=== PATIENT | female | born 1965 | race Caucasian/White ===

== ENCOUNTER 2016-06-24 17:35 | Emergency (ER) | payer MEDICAID ==
[~2016-06-24] VITALS: Ht 162.6 cm; Wt 90.7 kg
[~2016-06-24 17:35] MED LIST: ALBUTEROL-200 PUFFS/ IH; ALBUTEROL2.5 MG/NEB IN; ALBUTEROL2.5 MG/NEB INH; AMLODIPINE10 M2 PO; BENZONATATE100 MG PO; CIPRO 500MG TA500 MG PO; CLONIDINE HYDR0.1 MG PO; DUONEB 3 MG/3 ML3 ML IH; FLEXERIL10 MG PO; HYDROCODONE-APA1 TA2 PO; HYDROCODONE1 TABLET PO; HYGROTON GENERI25 MG PO; KEFLEX 500MG.500 MG PO; LISINOPRIL 20MG20 MG PO; LISINOPRIL10 MG PO; LORTAB 5/500 501 TAB PO; MEDROL 4MG. DOSE4 MG PO; MUCINEX1200 MG PO; NORVASC 10MG. T10 MG PO; PERCOCET 500 MG1 TAB PO; PHENERGAN 25MG.25 M1 PO; PRAVACHOL40 MG PO; PREDNISONE 20MG20 MG PO; PROVENTIL0.09 MG/A1 IH; PROVENTIL0.09 MG/Ac IH; REGLAN 5MG TABLE5 MG PO; SULFAMETHOXAZOL1 TA6 PO; TESSALON PERLE100 M1 PO; TESSALON PERLE100 MG PO; TORADOL10 MG PO; TYLENOL W/CODEI1 TA2 PO; ZANTAC 150150 MG PO; ZESTRIL10 MG NG; ZITHROMAX TRI-500 M1 PO; ZITHROMAX Z-PA250 M1 PO; ZITHROMAX Z-PA250 M2 PO; ZOFRAN ODT4 MG PO; ZOFRAN ODT8 MG PO; ZYRTEC10 M2 PO; ZYRTEC10 MG PO
[2016-06-24] MEDS ORDERED: AUGMENTIN 875-1 EACH PO (18:22)
--- NOTE | 2016-06-24 18:23 | Emergency Room Report ---
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 N Clinical Suspician of Infection? N Mental Status: 1 - Regular (Normal Baseline) Sepsis Risk:Possible Sepsis Risk Have you (or family members/close friends) recently traveled outside the [place]? N If Yes, where/when: Have you had exposure to infectious disease within the past month? N TB? Other? Specify: Source patient, RN notes reviewed, family, RN/MD Exam Limitations no limitations Comment This a 50-year-old feel patient presented emergency room with sore throat, runny nose and nonproductive cough, diagnosed in the emergency room yesterday with an upper respiratory infection. She was not prescribed any antibiotics. She was advised to try [id number] medications. Patient is here today complaining with no improvement in her medical condition. ALLERGIES Coded Allergies: adhesive (S-BLISTERING WELTS 08/28/15) Home Medications Active Scripts ALBUTEROL (Proventil Hfa Inhaler) 1-2 PUFF IH Q4-6H PRN #1 CAN Ref 1 Prov: 06/23/16 Benzonatate (Tessalon Perle) 100 MG PO TID #15 SGL Prov: 06/23/16 CETIRIZINE HCL (Zyrtec) 10 MG PO DAILY #30 TAB Ref 6 Prov: 08/28/15 ALBUTEROL (Albuterol 0.083% Neb) 2.5 MG INH QID #120 VIAL Ref 2 Prov: 08/28/15 Albuterol (Albuterol-Hfa Inhaler) 1 PUFF IH QID #1 INH Ref 6 Prov: 08/28/15 Lisinopril (Zestril) 10 MG NG DAILY #30 TAB Ref 11 Prov: 03/28/16 Reported Medications Ranitidine Hcl (Zantac) 150 MG PO DAILY History Medical History General CAD? No Angina: No VA: No Hypertension? Yes Hyperlipidemia? Yes CHF? No DVT? No PE? No COPD? No Asthma? Yes Anemia? No GERD? No Gastric ulcers? No GI Bleed? No Hernia? Yes Thyroid Problems? No Hypothyroidism? No CVA? No Seizures? No Diabetes? No Insulin Dependent: No Insulin Pump: No Home FSBS? No Renal Insuffiency? No End Stage Renal Disease? No UTI? No Stones? No BPH? No GB Disease: No Nephritic Syndrome? No Asplenia? No Hepatitis? No Sickle Cell Disease? No Arthritis? No Migraines? No Cataracts? No Glaucoma? No MRSA? No HIV? No TB? No Anxiety? No Depression? No Cancer? No More? 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 Psychiatric/Neurological weakness Physical Exam Vital Signs Vital Signs Date Time Temp Pulse Resp B/P Pulse O2 O2 Flow FiO2 Ox Delivery Rate 06/24 1954 99.4 97 20 184/104 98 06/24 1953 97 20 184/104 98 06/24 1910 20 06/24 1904 109 20 190/95 98 06/24 1805 99.4 101 20 189/99 98 General Appearance normal appearance, WD/WN, no apparent distress Ear, Nose, Throat hearing grossly normal, nasal congestion, pharyngeal erythema Neck normal inspection, non-tender, supple, full range of motion Respiratory Status Yes: trachea midline, chest symmetrical, non tender chest. No: respiratory distress. Lung Sounds bilateral: normal breath sounds, lungs clear. 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 No Comment Patient is medically stable, minimally symptomatic. Will no other start patient on antibiotics, and have her follow-up with PCP if not better in 2-3 days in the office. Results/Orders Current Medication Orders Sig/Renato Start time Last Medication Dose Route Stop Time Status Admin Clonidine HCl 0 .STK-MED ONE 06/24 1946 DC .ROUTE Clonidine HCl 0.2 MG ONCE ONE 06/24 1944 DC 06/24 PO 06/24 Clonidine HCl 0 .STK-MED ONE 06/24 1907 DC .ROUTE Diphenhydramine HCl 0 .STK-MED ONE 06/24 1907 DC .ROUTE Ketorolac 0 .STK-MED ONE 06/24 190 DC Tromethamine .ROUTE Amoxicillin/ 0 .STK-MED ONE 06/24 1906 DC Clavulanate Potassium PO Metoclopramide HCl 0 .STK-MED ONE 06/24 190 DC .ROUTE Amoxicillin/ 500 MG ONCE ONE 06/24 1830 DC 06/24 Clavulanate Potassium PO 06/24 1831 1910 Clonidine HCl 0.1 MG ONCE ONE 06/24 1830 DC 01/02 PO / 1831 1910 Diphenhydramine HCl 50 MG ONCE ONE 06/24 1830 DC / IM 06/24 1831 1909 Ketorolac 60 MG ONCE ONE 06/24 1830 DC / Tromethamine IM 06/24 1831 1910 Metoclopramide HCl 10 MG ONCE ONE 06/24 1830 DC / IM 06/24 1831 1909 Departure Departure Time of Disposition 1820 Disposition DC Home or Self Care(routine) Clinical Impression Primary Impression: Acute bronchitis Qualifiers: Bronchitis organism: unspecified organism Qualified Code: J20.9 - Acute bronchitis, unspecified Secondary Impressions: Headache Qualifiers: Headache type: tension-type Headache chronicity pattern: unspecified pattern Intractability: not intractable Qualified Code: G44.209 - Tension-type headache, unspecified, not intractable Hypertension Myalgia Condition STABLE Referrals Jose Warner MD (Family): Today after leaving ER Patient Instructions DI for Acute Bronchitis, DI for Sinus Headache, Treatments for High Blood Pressure: More Than Just Taking a Pill Additional Instructions Please take the medications prescribed as instructed, follow-up Dr. Warner if not better in the morning. Please alternate Motrin with Tylenol for body aches/fever control. Discharge Counseling Counseled pt/family regarding diagnosis, test results, medications/RX, home care, follow up needs Comment Please take the medications prescribed as instructed, follow-up Dr. Warner if not better in the morning. Please alternate Motrin with Tylenol for body aches/fever control. Prescriptions Current Visit Scripts Amoxicillin/Potassium Clav (Augmentin 875-125 Tablet) 1 EACH PO BID #20 TAB LISINOPRIL (Lisinopril) 20 MG PO DAILY #30 TAB Ref 2 ED Critical Care Critical Care No at 1028
[2016-06-24] MEDS ORDERED: LISINOPRIL 20MG20 MG PO (19:49)
[2016-06-24 19:55] VITALS: BP 184/104
== END 2016-06-24 19:56 | disposition home or self-care (01) ==
LOC: ER 17:35
DX: J20.9 Acute bronchitis, unspecified (principal); G44.209 Tension-type headache, unspecified, not intractable; I10 Essential (primary) hypertension; M79.1 Myalgia

== ENCOUNTER 2016-11-02 10:36 | Emergency (ER) | payer MEDICAID ==
[~2016-11-02] VITALS: Ht 162.6 cm; Wt 90.7 kg
[~2016-11-02 10:36] MED LIST changes: +AUGMENTIN 875-1 EACH PO; +ZITHROMAX Z PA250 MG PO
--- OUTSIDE RECORDS SUMMARY | 2016-11-02 10:45 | External Medical Summary Rpt ---
Author Author , Organization [employer] Address Unknown Phone Unavailable Care Team Providers Care Watch Inspector Final Movement Name Role Phone MANJINDER DUNBAR Unavailable Unavailable [facility] Unavailable Unavailable INC, [facility] Unavailable Unavailable [facility], [facility], [facility] Unavailable Unavailable [facility], [facility] RENUSCH, RENUSCH Unavailable Unavailable Jose Warner MD, Unavailable Unavailable Jose Warner MD Purpose Continuity of Care Document - 08-15-2012 through 2016 Problems Code Diagnosis DOS Provider Status [id number] MILD 09-24-2016 [facility] P UNCOMPLICAT ED [id number] OTHER 08-15-2016 [facility] Z0000 ENCOUNTER 08-15-2016 [facility] EXAM INC W/O ABNORMAL FIND I10 ESSENTIAL 06-23-2016 [facility] HYPERTENSIO INC N J069 ACUTE UPPER 06-23-2016 [facility] INFECTION UNSPECIFIED [id number] ATELECTASIS 06-23-2016 [facility] R05 COUGH 06-23-2016 [facility] J209 ACUTE 05-15-2016 [facility] UNSPECIFIED INC [id number] Chest pain [facility] I10 ESSENTIAL (PRIMARY) HYPERTENSIO N I16.9 HYPERTENSIV E CRISIS, UNSPECIFIED [id number] J06.9 ACUTE UPPER RESPIRATORY INFECTION, UNSPECIFIED J18.9 PNEUMONIA, UNSPECIFIED ORGANISM J20.9 ACUTE BRONCHITIS, UNSPECIFIED J40 BRONCHITIS, NOT SPECIFIED ACUTE OR CHRONIC M79.1 MYALGIA M79.2 NEURALGIA AND NEURITIS, UNSPECIFIED R01.1 CARDIAC MURMUR, UNSPECIFIED R07.89 OTHER CHEST PAIN R09.02 HYPOXEMIA R10.9 UNSPECIFIED ABDOMINAL PAIN R50.9 FEVER, UNSPECIFIED R51 HEADACHE 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, LEFT EYE, INIT Z91.19 PATIENT'S NONCOMPLIAN CE W OTH MEDICAL TREATMENT AND REGIMEN Allergies, Adverse Reactions, Alerts Type Allergy to substance Drug Allergy Adverse Reaction to Substance Substance Reaction Severity Adhesive S-BLISTERING WELTS Unknown NO KNOWN DRUG Unknown Unknown ALLERGIES Clinical Alert Notifications Alert Asthma: absence of controller with h/o SA beta agonist Medications Na ND Rx Da Fi Fi Am Da Di Ph RX Ph St me C No te ll ll ou ys ag ar # ys at rm s nt no ma ic us Or Da si cy ia de te s n re d VE 00 02 03 18 17 00 WA Ac NT 17 -0 -0 .0 00 L- ti OL 30 7- 3- 00 07 MA ve IN 68 20 20 46 RT 22 17 17 18 HF 0 69 PH A AR 90 MA CY MC G #5 IN VARGAS LE R LI 54 02 03 30 30 00 WA Ac SI 45 -0 -0 .0 00 L- ti NO 80 7- 3- 00 07 MA ve IL 99 20 20 46 RT IL 61 17 17 21 0 92 PH 20 AR MA MG CY TA #5 BL 91 ET BE 68 01 02 15 5 00 WA Ac NZ 38 -0 -0 .0 00 L- ti ON 20 9- 3- 00 07 MA ve AT 24 20 20 46 RT AT 70 17 17 18 E 1 68 PH 10 AR 0 MA MG CY CA #5 PS 91 UL E VE 00 01 02 18 17 00 WA Ac NT 17 -0 -0 .0 00 L- ti OL 30 9- 3- 00 07 MA ve IN 68 20 20 46 RT 22 17 17 18 HF 0 69 PH A AR 90 MA CY MC G #5 IN 91 VARGAS LE R AM 00 01 02 20 10 00 WA Ac OX 78 -0 -0 .0 00 L- ti -C 11 9- 3- 00 07 MA ve LA 85 20 20 46 RT V 22 17 17 21 87 0 82 PH 5- AR 12 MA 5 CY MG #5 TA 91 BL ET LI 54 01 02 30 30 00 WA Ac SI 45 -0 -0 .0 00 L- ti NO 80 9- 3- 00 07 MA ve IL 99 20 20 46 RT IL 61 17 17 21 0 92 PH 20 AR MA MG CY TA #5 BL 91 ET Sa 63 01 0 No li 80 -2 ne 70 9- Lo 10 20 ng Fl 07 14 er us 5 h Ac 10 ti ML ve Sy ri ng e MA 00 01 0 No PA 90 -2 P 41 9- Lo 32 98 20 ng 5 26 14 er MG 1 Ac TA ti BL ve ET Sa 63 01 0 No li 80 -2 ne 70 9- Lo 10 20 ng Fl 07 14 er us 5 h Ac 10 ti ML ve Sy ri ng e SO 00 10 0 No DI 40 -2 UM 97 0- Lo 98 20 ng CH 30 13 er LO 9 RI Ac DE ti ve 0. 9% SO OBDULIA TI ON Sa 63 10 0 No li 80 -2 ne 70 0- Lo 10 20 ng Fl 07 13 er us 5 h Ac 10 ti ML ve Sy ri ng e ON 00 10 0 No DA 64 -2 NS 16 0- Lo ET 08 20 ng RO 02 13 er N 5 HC Ac L ti 4 ve MG /2 ML AL Mo 00 10 0 No rp 40 -2 hi 91 0- Lo ne 25 20 ng 83 13 er 4M 0 G/ Ac Ml ti ve Sy ri ng e Ib 62 07 0 No up 58 -1 ro 40 5- Lo fe 74 20 ng n 70 13 er 60 1 0M Ac G ti Ta ve bl et Sa 63 07 0 No li 80 -1 ne 70 5- Lo 10 20 ng Fl 07 13 er us 5 h Ac 10 ti ML ve Sy ri ng e SO 00 07 0 No DI 40 -1 UM 97 5- Lo 98 20 ng CH 30 13 er LO 9 RI Ac DE ti ve 0. 9% SO OBDULIA TI ON MA 00 07 0 No PA 90 -1 P 41 5- Lo 32 98 20 ng 5 26 13 er MG 1 Ac TA ti BL ve ET Ib 62 07 0 No up 58 -1 ro 40 5- Lo fe 74 20 ng n 70 13 er 60 1 0M Ac G ti Ta ve bl et Sa 63 07 0 No li 80 -1 ne 70 5- Lo 10 20 ng Fl 07 13 er us 5 h Ac 10 ti ML ve Sy ri ng e KE 00 07 0 No TO 40 -1 RO 93 5- Lo LA 79 20 ng C 50 13 er 30 1 Ac MG ti /M ve L AL CE 00 07 0 No FT 40 -1 RI 97 5- Lo AX 33 20 ng ON 30 13 er E 4 1 Ac GM ti ve AL So 00 07 0 No d 07 -1 Ch 47 5- Lo lo 10 20 ng ri 11 13 er de 3 Ac 0. ti 9% ve 50 ML Ad v IP 00 02 0 No RA 48 -2 T- 70 3- Lo AL 20 20 ng BU 10 13 er T 1 0. Ac 5- ti 3( ve 2. 5) MG /3 ML AL 00 02 0 No BU 48 -2 TE 79 3- Lo RO 50 20 ng L 10 13 er RANGEL 1 L Ac 2. ti 5 ve MG /[address] Ae 08 02 0 No ro 37 -2 ch 30 3- Lo am 76 20 ng be 50 13 er r/ 0 Op Ac ti ti vargas ve le r IL 00 02 0 No ED 05 -2 NI 40 3- Lo SO 01 20 ng NE 82 13 er 0 20 Ac ti MG ve TA BL ET Be 00 02 0 No nz 60 -2 on 32 3- Lo at 42 20 ng at 62 13 er e 1 10 Ac 0M ti G ve Ca ps ul e Le 51 02 0 No vo 07 -2 fl 90 3- Lo ox 03 20 ng ac 52 13 er in 0 Ac 50 ti 0M ve G Ta bl et Vital Signs 07-21-2013 12:11 Name Value Interpretat Reference Comment ion Range Body 98 [degF] Temperature BP 93 mm[Hg] Diastolic BP Systolic 178 mm[Hg] Heart 75 /min Rate/Pulse O2% 97 % Respiratory 20 /min Rate 07-21-2013 08:06 Name Value Interpretat Reference Comment ion Range BP 101 mm[Hg] Diastolic BP Systolic 156 mm[Hg] Heart 76 /min Rate/Pulse O2% 98 % Respiratory 20 /min Rate 04-11-2013 19:15 Name Value Interpretat Reference Comment ion Range BP 100 mm[Hg] Diastolic BP Systolic 153 mm[Hg] Heart 82 /min Rate/Pulse O2% 96 % Respiratory 20 /min Rate 04-11-2013 17:04 Name Value Interpretat Reference Comment ion Range BP 94 mm[Hg] Diastolic BP Systolic 157 mm[Hg] Heart 85 /min Rate/Pulse O2% 96 % Respiratory 20 /min Rate 01-04-2013 21:13 Name Value Interpretat Reference Comment ion Range Body 99.8 [degF] Temperature BP 66 mm[Hg] Diastolic BP Systolic 119 mm[Hg] Heart 115 /min Rate/Pulse O2% 95 % Respiratory 18 /min Rate 01-04-2013 19:44 Name Value Interpretat Reference Comment ion Range Body 102.1 Temperature [degF] 01-04-2013 18:38 Name Value Interpretat Reference Comment ion Range BP 90 mm[Hg] Diastolic BP Systolic 167 mm[Hg] Heart 113 /min Rate/Pulse O2% 98 % Respiratory 20 /min Rate 08-15-2012 22:41 Name Value Interpretat Reference Comment ion Range BP 80 mm[Hg] Diastolic BP Systolic 154 mm[Hg] Heart 100 /min Rate/Pulse O2% 95 % Respiratory 20 /min Rate 08-15-2012 21:04 Name Value Interpretat Reference Comment ion Range BP 94 mm[Hg] Diastolic BP Systolic 163 mm[Hg] Heart 101 /min Rate/Pulse Respiratory 24 /min Rate 08-15-2012 20:43 Name Value Interpretat Reference Comment ion Range O2% 93 % Results Labs Lab Lab Date Result Refere Interp Status Commen Order Detail nces retati t Range on BASIC METABOLIC PANEL (07-21-2013 07:50) Glucose 87 74-106 complet 014 mg/dL ed Bld-mCn 07:50 c BUN 13 7-18 complet Bld-mCn 014 mg/dL ed c 07:50 Creat 0.7 0.6-1.0 complet SerPl-m 014 mg/dL ed Cnc 07:50 GFR/BSA 89 59- complet .pred 014 ML/MIN ed SerPl 07:50 Schwart z-vRate Sodium 141 136-145 complet SerPl-s 014 mmoL/L ed Cnc 07:50 Potassi 3.7 3.5-5.1 complet um 014 mmoL/L ed SerPl-s 07:50 Cnc Chlorid 106 98-107 complet e 014 mmoL/L ed SerPl-s 07:50 Cnc CO2 28 21.0-32 complet SerPl-s 014 mmoL/L .0 ed Cnc 07:50 Calcium 8.2 8.5-10. complet 014 mg/dL 1 ed SerPl-m 07:50 Cnc CBC with AUTO DIFF (07-21-2013 07:50) WBC # 07-21-2 8.9 4.8-10. complet Bld 014 K/MM3 8 ed Auto 07:50 RBC # 07-21-2 5.07 4.2-5.4 complet Bld 014 M/mm3 ed Auto 07:50 Hgb 2 15.0 12.2-16 complet Bld-mCn 014 g/dL .2 ed c 07:50 Hct Fr 45.1 % 37.0-47 complet Bld 014 .0 ed 07:50 MCV RBC 88.9 fl 82.2-97 complet 014 .8 ed 07:50 MCH RBC 29.6 pg 27-31.2 complet Qn 014 ed Auto 07:50 MEAN 33.3 31.8-35 complet CORPUSC 014 g/dl .4 ed ULAR 07:50 HGB CONC RDW RBC 14.5 % 11.5-17 complet Auto 014 .5 ed 07:50 Platele 334 142-424 complet t Bld 014 K/mm3 ed Ql 07:50 Manual MEAN 7.8 fl 7.4-10. complet PLATELE 014 4 ed T 07:50 VOLUME Granulo 62.3 % 37.0-80 complet cytes 014 .0 ed Fr Bld 07:50 Auto LYMPH % 07-21-2 27.7 % 10-50.0 complet 014 ed 07:50 Monocyt 07-21-2 6.1 % 1.7-9.3 complet es Fr 014 ed Bld 07:50 Auto Eosinop 07-21-2 3.1 % 0.1-12. complet hil Fr 014 0 ed Bld 07:50 Auto Basophi 07-21-2 0.8 % 0.1-2.0 complet ls Fr 014 ed Bld 07:50 Auto Granulo 07-21-2 5.6 1.8-7.8 complet cytes # 014 K/mm3 ed Bld 07:50 Auto Lymphoc 07-21-2 2.5 0.7-4.5 complet ytes Fr 014 K/mm3 ed Bld 07:50 Auto Monocyt 07-21-2 0.5 0.1-1.0 complet es # 014 K/mm3 ed Bld 07:50 Auto Eosinop 07-21-2 0.3 0.0-0.4 complet hil # 014 K/mm3 ed Bld 07:50 Auto Basophi 07-21-2 0.1 0-0.2 complet ls # 014 K/MM3 ed Bld 07:50 Auto URINALYSIS/COMPLETE (04-11-2013 18:00) URINE 04-11-2 YELLOW YELLOW complet COLOR 013 ed 18:00 URINE 04-11-2 SL CLEAR complet APPEARA 013 CLOUDY ed NCE 18:00 URINE 04-11-2 NEGATIV NEG complet GLUCOSE 013 E ed - 18:00 DIPSTIC K URINE 04-11-2 NEGATIV NEG complet BILIRUB 013 E ed IN - 18:00 DIPSTIC K URINE 04-11-2 NEGATIV NEG complet KETONE 013 E mg/dL ed 18:00 URINE 04-11-2 1.010 1.005-1 complet SPECIFI 013 UNK .030 ed C 18:00 GRAVITY URINE 04-11-2 NEGATIV NEG complet BLOOD 013 E ed 18:00 URINE 04-11-2 7.0 UNK 5.0-8.5 complet PH 013 ed 18:00 URINE 04-11-2 NEGATIV NEG complet PROTEIN 013 E mg/dL ed - 18:00 DIPSTIC K URINE 04-11-2 0.2 NEG complet UROBILI 013 E.U./dL ed NOGEN - 18:00 DIPSTIC K URINE 04-11-2 NEGATIV NEG complet NITRATE 013 E ed - 18:00 DIPSTIC K URINE 04-11-2 NEGATIV NEG complet LEUK 013 E ed ESTERAS 18:00 E URINE 04-11-2 OCC 0 complet RBC 013 rbc/hpf ed 18:00 URINE 04-11-2 OCC O complet WBC 013 wbc/hpf ed 18:00 URINE 04-11-2 10-20 0-5 complet SQUAMOU 013 #/hpf ed S CELLS 18:00 URINE 04-11-2 TRACE O complet BACTERI 013 ed A 18:00 COMPREHENSIVE METABOLIC PANEL (04-11-2013 16:40) Glucose 04-11- 92 74-106 complet 013 mg/dL ed Bld-mCn 16:40 c BUN 04-11-2 12 7-18 complet Bld-mCn 013 mg/dL ed c 16:40 Creat 04-11-2 0.6 0.6-1.0 complet SerPl-m 013 mg/dL ed Cnc 16:40 ESTIMAT 10-20-2 162 50-200 complet ED 013 ML/MIN ed CREATIN 16:40 INE CLEARAN CE GFR 04-11-2 106 59- complet (ESTIMA 013 ML/MIN ed HUEY) 16:40 Sodium 20-2 141 136-145 complet SerPl-s 013 mmoL/L ed Cnc 16:40 Potassi 1020-2 3.8 3.5-5.1 complet um 013 mmoL/L ed SerPl-s 16:40 Cnc Chlorid 20- 105 98-107 complet e 013 mmoL/L ed SerPl-s 16:40 Cnc CO2 04-11-2 28 21.0-32 complet SerPl-s 013 mmoL/L .0 ed Cnc 16:40 Calcium 04-11-2 8.7 8.5-10. complet 013 mg/dL 1 ed SerPl-m 16:40 Cnc Prot 20- 7.1 6.4-8.2 complet SerPl-m 013 gm/dL ed Cnc 16:40 Albumin 04-11-2 3.6 3.4-5.0 complet 013 gm/dL ed SerPl-m 16:40 Cnc Globuli 04-11-2 3.5 1.3-3.2 complet n 013 gm/dL ed Ser-mCn 16:40 c Albumin 04-11-2 1.0 UNK 1.1-1.8 complet /Glob 013 ed SerPl-m 16:40 Rto Bilirub 04-11-2 0.2 0.2-1.0 complet 013 mg/dL ed SerPl-m 16:40 Cnc AST 20-2 18 U/L 15-37 complet SerPl-c 013 ed Cnc 16:40 ALT 20-2 35 U/L 30-65 complet SerPl-c 013 ed Cnc 16:40 ALP 20-2 130 U/L 50-136 complet SerPl-c 013 ed Cnc 16:40 Amylase SerPl-cCnc (04-11-2013 16:40) Amylase 1020-2 53 U/L 25-115 complet 013 ed SerPl-c 16:40 Cnc LIPASE (04-11-2013 16:40) LIPASE 20-2 114 U/L 73-393 complet 013 ed 16:40 CBC with AUTO DIFF (04-11-2013 16:40) WBC # 10-20-2 9.9 4.8-10. complet Bld 013 K/MM3 8 ed Auto 16:40 RBC # 10-20-2 5.02 4.2-5.4 complet Bld 013 M/mm3 ed Auto 16:40 Hgb 10-20-2 15.2 12.2-16 complet Bld-mCn 013 g/dL .2 ed c 16:40 Hct Fr 10-20-2 46.3 % 37.0-47 complet Bld 013 .0 ed 16:40 MCV RBC 10-20-2 92.4 fl 82.2-97 complet 013 .8 ed 16:40 MCH RBC 10-20-2 30.4 pg 27-31.2 complet Qn 013 ed Auto 16:40 MEAN 10-20-2 32.9 31.8-35 complet CORPUSC 013 g/dl .4 ed ULAR 16:40 HGB CONC RDW RBC 10-20-2 14.6 % 11.5-17 complet Auto 013 .5 ed 16:40 Platele 10-20-2 308 142-424 complet t Bld 013 K/mm3 ed Ql 16:40 Manual MEAN 10-20-2 8.0 fl 7.4-10. complet PLATELE 013 4 ed T 16:40 VOLUME Granulo 10-20-2 65.8 % 37.0-80 complet cytes 013 .0 ed Fr Bld 16:40 Auto LYMPH % 10-20-2 22.6 % 10-50.0 complet 013 ed 16:40 Monocyt 10-20-2 6.1 % 1.7-9.3 complet es Fr 013 ed Bld 16:40 Auto Eosinop 10-20-2 4.7 % 0.1-12. complet hil Fr 013 0 ed Bld 16:40 Auto Basophi 10-20-2 0.8 % 0.1-2.0 complet ls Fr 013 ed Bld 16:40 Auto Granulo 10-20-2 6.5 1.8-7.8 complet cytes # 013 K/mm3 ed Bld 16:40 Auto Lymphoc 10-20-2 2.2 0.7-4.5 complet ytes Fr 013 K/mm3 ed Bld 16:40 Auto Monocyt 10-20-2 0.6 0.1-1.0 complet es # 013 K/mm3 ed Bld 16:40 Auto Eosinop 10-20-2 0.5 0.0-0.4 complet hil # 013 K/mm3 ed Bld 16:40 Auto Basophi 10-20-2 0.1 0-0.2 complet ls # 013 K/MM3 ed Bld 16:40 Auto BASIC METABOLIC PANEL (01-04-2013 19:48) Glucose 07-15-2 110 74-106 complet 013 mg/dL ed Bld-mCn 19:48 c BUN 07-15-2 10 7-18 complet Bld-mCn 013 mg/dL ed c 19:48 Creat 07-15-2 0.8 0.6-1.0 complet SerPl-m 013 mg/dL ed Cnc 19:48 GFR -15-2 76 59- complet (ESTIMA 013 ML/MIN ed HUEY) 19:48 Sodium -15-2 137 136-145 complet SerPl-s 013 mmoL/L ed Cnc 19:48 Potassi -15-2 3.3 3.5-5.1 complet um 013 mmoL/L ed SerPl-s 19:48 Cnc Chlorid -15-2 102 98-107 complet e 013 mmoL/L ed SerPl-s 19:48 Cnc CO2 07-15-2 26 21.0-32 complet SerPl-s 013 mmoL/L .0 ed Cnc 19:48 Calcium 07-15-2 8.5 8.5-10. complet 013 mg/dL 1 ed SerPl-m 19:48 Cnc CBC with AUTO DIFF (01-04-2013 19:48) WBC # 07-15-2 15.2 4.8-10. complet Bld 013 K/MM3 8 ed Auto 19:48 RBC # 07-15-2 4.82 4.2-5.4 complet Bld 013 M/mm3 ed Auto 19:48 Hgb 07-15-2 14.4 12.2-16 complet Bld-mCn 013 g/dL .2 ed c 19:48 Hct Fr -15-2 43.1 % 37.0-47 complet Bld 013 .0 ed 19:48 MCV RBC 07-15-2 89.3 fl 82.2-97 complet 013 .8 ed 19:48 MCH RBC -15-2 29.9 pg 27-31.2 complet Qn 013 ed Auto 19:48 MEAN 07-15-2 33.5 31.8-35 complet CORPUSC 013 g/dl .4 ed ULAR 19:48 HGB CONC RDW RBC 07-15-2 13.2 % 11.5-17 complet Auto 013 .5 ed 19:48 Platele 07-15-2 243 142-424 complet t Bld 013 K/mm3 ed Ql 19:48 Manual MEAN 07-15-2 7.8 fl 7.4-10. complet PLATELE 013 4 ed T 19:48 VOLUME Granulo 07-15-2 90.3 % 37.0-80 complet cytes 013 .0 ed Fr Bld 19:48 Auto LYMPH % 07-15-2 3.8 % 10-50.0 complet 013 ed 19:48 Monocyt 07-15-2 3.5 % 1.7-9.3 complet es Fr 013 ed Bld 19:48 Auto Eosinop 07-15-2 1.9 % 0.1-12. complet hil Fr 013 0 ed Bld 19:48 Auto Basophi 07-15-2 0.5 % 0.1-2.0 complet ls Fr 013 ed Bld 19:48 Auto Granulo 07-15-2 13.8 1.8-7.8 complet cytes # 013 K/mm3 ed Bld 19:48 Auto Lymphoc 07-15-2 0.6 0.7-4.5 complet ytes Fr 013 K/mm3 ed Bld 19:48 Auto Monocyt 07-15-2 0.5 0.1-1.0 complet es # 013 K/mm3 ed Bld 19:48 Auto Eosinop 07-15-2 0.3 0.0-0.4 complet hil # 013 K/mm3 ed Bld 19:48 Auto Basophi 07-15-2 0.1 0-0.2 complet ls # 013 K/MM3 ed Bld 19:48 Auto URINALYSIS/COMPLETE (01-04-2013 19:00) URINE 07-15-2 YELLOW YELLOW complet COLOR 013 ed 19:00 URINE 07-15-2 CLEAR CLEAR complet APPEARA 013 ed NCE 19:00 URINE 07-15-2 NEGATIV NEG complet GLUCOSE 013 E ed - 19:00 DIPSTIC K URINE -15-2 NEGATIV NEG complet BILIRUB 013 E ed IN - 19:00 DIPSTIC K URINE NEGATIV NEG complet KETONE 013 E mg/dL ed 19:00 URINE 01-04- 1.015 1.005-1 complet SPECIFI 013 UNK .030 ed C 19:00 GRAVITY URINE 1+ NEG complet BLOOD 013 ed 19:00 URINE 01-04- 6.5 UNK 5.0-8.5 complet PH 013 ed 19:00 URINE NEGATIV NEG complet PROTEIN 013 E mg/dL ed - 19:00 DIPSTIC K URINE 01-04-2 0.2 NEG complet UROBILI 013 E.U./dL ed NOGEN - 19:00 DIPSTIC K URINE 01-04- NEGATIV NEG complet NITRATE 013 E ed - 19:00 DIPSTIC K URINE 01-04- NEGATIV NEG complet LEUK 013 E ed ESTERAS 19:00 E URINE 01-04- 3-5 0 complet RBC 013 rbc/hpf ed 19:00 URINE 01-04- OCC 0-5 complet SQUAMOU 013 #/hpf ed S CELLS 19:00 Procedures Procedure DOS Code Location Performer Comment BRNCDILAT 87481 [facility] RSPSE [facility] SPMTRY INC INC PRE&POST- BRNCDILAT ADMN LIPID 46237 [facility] PANEL [facility] INC INC BILIRUBIN 04321 [facility]ENESES DIRECT 7 [facility] [place] [address] [facility] MENESES FREE 7 [facility] [place] [address] [facility] M[facility] THYROID 7 [facility] STIMULATI INC INC NG HORMONE TSH COMPREHEN 12695 [facility] SIVE 7 [facility] METABOLIC INC INC PANEL CYANOCOBA 17556 [facility] MENESES EDINSON 7 [facility] VITAMIN INC INC B-12 BLOOD 82507 [facility] MENESES COUNT 7 [facility] COMPLETE INC INC AUTO&[place] [address] [facility] MENESES STREPTOCO 7 [facility] CCUS INC INC GROUP A CUL BACT 48786 [facility]ES XCPT 7 [facility] URINE INC INC BLOOD/STO OL AEROBIC ISOL IAADI 46295 [facility]EN[facility]ES INFLUENZA 7 [facility] B VIRUS INC INC IAADI 83302 [facility] INFFLUENZ 7 [facility] A VIRUS INC INC RADIOLOGI 37572 [facility] EXAM 7 PHYSICIAN CHEST 2 S, PLLC VIEWS FRONTAL&L ATERAL NATRIURET 15049 [facility] IC 6 [facility] PEPTIDE INC INC PRESSURIZ 85354 [facility]EN[facility] ED/NONPRE 6 [facility] SSURIZED INC INC INHALATIO N TREATMENT THERAPEUT 98005 [facility] IC 6 [facility] INJECTION INC INC IV PUSH EACH NEW DRUG CREATINE 21006 [facility] MEN[facility]ES KINASE 6 [facility] TOTAL INC INC COMPREHEN 32221 [facility] SIVE 6 [facility] METABOLIC INC INC PANEL CULTURE 91625 [facility] BACTERIAL 6 [facility] BLOOD INC INC AEROBIC W/ID ISOLATES RADIOLOGI 75107 [facility] MENESES C EXAM 6 [facility] CHEST 2 INC INC VIEWS FRONTAL&L ATERAL THER 92531 [facility] MENESES PROPH/DX 6 [facility] NJX IV INC INC PUSH SINGLE/1S T SBST/DRUG CREATINE 57342 [facility] MENESES KINASE MB 6 [facility] [place] [address] [facility] MENESES LACTATE 6 [place] [address] [facility] MENESES TROPONIN 6 [facility] QUANTITAT INC INC CHEPE BLOOD 78492 [facility] MENESES COUNT 6 [facility] COMPLETE INC INC AUTO&AUTO DIFRNTL WBC Encounters Encounter Start End Date Code Location Performer Type Date [facility] [place] [facility] [place] [facility] OUTPAT[facility]EN INC T INITIAL 12800 [facility] PREVENTIV 7 7 PHYSICIAN E S GROUP MEDICINE NEW PATIENT 40-64YRS EMERGENCY 87246 [facility] 7 7 [facility] DEPARTMEN INC T VISIT LIMITED/M [facility] - 7 7 [facility] OUTPATIEN INC T EMERGENCY 30098 [facility] 7 7 [facility]YS[facility] T VISIT HIGH/URGE NT SEVERITY HOSPITAL [facility] - 6 6 [facility] OUTPATIEN INC T EMERGENCY 93267 [facility] 6 6 [facility] DEPARTMEN INC T VISIT MODERATE SEVERITY Emergency LAKIA BERNSTEIN MD (ER) 4 08:23 4 12:18 [facility] Emergency LAKIA Louie MD (ER) 3 16:36 3 19:17 [facility] Emergency LAKIA Louie MD (ER) 3 18:18 3 21:14 [facility] Emergency LAKIA Anderson (ER) 3 20:44 3 22:41 [facility]
--- OUTSIDE RECORDS SUMMARY | 2016-11-02 10:45 | External Medical Summary Rpt ---
Author Author , Organization [employer] Address Unknown Phone Unavailable Care Team Providers Care Sales Development Consultant Name Role Phone MANJINDER DUNBAR Unavailable Unavailable [facility] Unavailable Unavailable INC, [facility] Unavailable Unavailable [facility]PITAL [facility], [facility] Unavailable Un[facility], [facility], Unavailable Unavailable PLLC, [facility] RENUSCH, RENUSCH Unavailable Unavailable Jose Warner MD, Unavailable Unavailable Jose Warner MD Purpose Continuity of Care Document - 08-15-2012 through 2016 Problems Code Diagnosis DOS Provider Status J4530 MILD 09-24-2016 [facility] P UNCOMPLICAT ED R5383 OTHER 08-15-2016 [place] FATIGUE [facility] Z0000 ENCOUNTER 08-15-2016 [place] GEN ADULT [facility] MED EXAM INC W/O ABNORMAL FIND I10 ESSENTIAL 06-23-2016 [place] PRIMARY [facility] HYPERTENSIO INC N J069 ACUTE UPPER 06-23-2016 [facility] INFECTION UNSPECIFIED J9811 ATELECTASIS 06-23-2016 [facility] R05 COUGH 06-23-2016 [facility] J209 ACUTE 05-15-2016 [place] BRONCHITIS [facility] UNSPECIFIED INC [id number] Chest pain [facility] I10 ESSENTIAL (PRIMARY) HYPERTENSIO N I16.9 HYPERTENSIV E CRISIS, UNSPECIFIED [id number] J06.9 ACUTE UPPER RESPIRATORY INFECTION, UNSPECIFIED J18.9 [...] 80 7- 3- 00 07 MA ve UT 99 20 20 46 RT IL 61 [...] 80 9- 3- 00 07 MA ve UT 99 20 20 46 RT IL 61 [...] Ac ti ti vargas ve le r UT 00 02 0 No ED 05 -2 [...] Procedure DOS Code Location Performer Comment BRNCDILAT 00859 G[facility] MENESES RSPSE 7 [facility] SPMTRY INC INC PRE&POST- BRNCDILAT ADMN LIPID 28294 [facility] MENESES PANEL 7 [facility] INC INC BILIRUBIN 95849 G[facility] MENESES DIRECT 7 [facility] [place] [address] G[facility]ON MENESES FREE 7 [facility] [address] G[facility]ON MENESES THYROID 7 [facility] STIMULATI INC INC NG HORMONE TSH COMPREHEN 55484 [facility] MENESES SIVE 7 [facility] METABOLIC INC INC PANEL CYANOCOBA 41753 GIDEON MENESES EDINSON 7 [facility] VITAMIN INC INC B-12 BLOOD 93837 G[facility]ON EMNESES COUNT 7 [facility] COMPLETE INC INC AUTO&[place] [address] GIDEON MENESES STREPTOCO 7 [facility] CCUS INC INC GROUP A CUL BACT 50458 GIDE[facility] MENESES XCPT 7 [facility] URINE INC INC BLOOD/STO OL AEROBIC ISOL IAADI 77951 GIDEON MENESES INFLUENZA 7 [facility] B VIRUS INC INC IAADI 19950 GIDE[facility] MENESES INFFLUENZ 7 [facility] A A VIRUS INC INC RADIOLOGI 40181 [facility] 7 PHYSICIAN CHEST 2 S, PLLC VIEWS FRONTAL&L ATERAL NATRIURET 17154 G[facility] MENESES IC 6 [facility] PEPTIDE INC INC PRESSURIZ 76051 GIDEON MENESES ED/NONPRE 6 [facility] SSURIZED INC INC INHALATIO N TREATMENT THERAPEUT 03726 [facility] MENESES IC 6 [facility] INJECTION INC INC IV PUSH EACH NEW DRUG CREATINE 60746 GIDEON MENESES KINASE 6 [facility] TOTAL INC INC COMPREHEN 84370 G[facility] MENESES SIVE 6 [facility] METABOLIC INC INC PANEL CULTURE 81439 GIDEON MENESES BACTERIAL 6 [facility] BLOOD INC INC AEROBIC W/ID ISOLATES RADIOLOGI 45814 GIDEON MENESES C EXAM 6 [facility] CHEST 2 INC INC VIEWS FRONTAL&L ATERAL THER 91358 GIDEON MENEESS PROPH/DX 6 [facility] NJX IV INC INC PUSH SINGLE/1S T SBST/DRUG CREATINE 56722 GIDEON MENESES KINASE MB 6 [facility] [place] [address] GIDEON MENESES LACTATE 6 [place] [address] GIDEON MENESES TROPONIN 6 [facility] QUANTITAT INC INC CHEPE BLOOD 67500 GIDEON MENESES COUNT 6 [facility] COMPLETE INC INC AUTO&AUTO DIFRNTL WBC Encounters Encounter Start End Date Code Location Performer Type Date [facility] GIDEON [place] 7 [facility] OUTPATIEN INC [facility] GIDEON Trinidad 7 [facility] OUTPATIEN INC T INITIAL 18985 [facility] FRYMAN PREVENTIV 7 7 PHYSICIAN E S GROUP MEDICINE NEW PATIENT 40-64YRS EMERGENCY 61227 GIDEON 7 7 [facility] DEPARTMEN INC T VISIT LIMITED/M INOR PROB HOSPITAL GIDEON - 7 7 [facility] OUTPATIEN INC T EMERGENCY 77568 [facility] SANTIAGOUSC 7 7 PHYSICIAN DEPARTMEN S, [employer] T VISIT HIGH/URGE NT SEVERITY HOSPITAL GIDEON - 6 6 [facility] OUTPATIEN INC T EMERGENCY 40120 GIDEON 6 6 [facility] DEPARTMEN INC T VISIT MODERATE SEVERITY Emergency LAKIA BERNSTEIN MD (ER) 4 08:23 4 12:18 [facility] Emergency LAKIA Louie MD (ER) 3 16:36 3 19:17 [facility] Emergency LAKIA Louie MD (ER) 3 18:18 3 21:14 [facility] Emergency LAKIA Anderson (ER) 3 20:44 3 22:41 [facility]
--- OUTSIDE RECORDS SUMMARY | 2016-11-02 10:47 | External Medical Summary Rpt ---
Demographics Preferred Language Monegasque Marital Status Unknown Oriental Orthodox Affiliation Unknown Race Unknown Ethnic Group Unknown Author Author , Organization [employer] Address Unknown Phone Unavailable Purpose Continuity of Care Document - through 2016 Immunization No patient found.
--- OUTSIDE RECORDS SUMMARY | 2016-11-02 10:47 | External Medical Summary Rpt ---
Author Author , Organization [employer] Address Unknown Phone Unavailable Care Team Providers Care Group Cio Name Role Phone BEINEKE, BEGAYEKE Unavailable Unavailable MANJINDER DUNBAR Unavailable Unavailable [facility] Unavailable Unavailable INC, [facility] Unavailable Unavailable HOSPITAL P, [facility] Unavailable Unavailable IMAGING ASS, [facility] WES NELSON, WES NELSON Unavailable Unavailable [facility], Unavailable Unavailable PLLC, [facility] RENJADIEL, DEANNE Unavailable Unavailable Purpose Continuity of Care Document - 05-15-2016 through 2016 Problems Code Diagnosis DOS Provider Status [id number] MILD 09-24-2016 [facility] P UNCOMPLICAT ED R5383 OTHER 08-15-2016 [place] [facility] Z0000 ENCOUNTER 08-15-2016 [place] GEN ADULT [facility] MED EXAM INC W/O ABNORMAL FIND I10 ESSENTIAL 06-23-2016 [place] PRIMARY [facility] HYPERTENSIO INC N J069 ACUTE UPPER 06-23-2016 [facility] INFECTION UNSPECIFIED J9811 ATELECTASIS 06-23-2016 [facility] R05 COUGH 06-23-2016 [facility], PLLC J209 ACUTE 05-15-2016 [place] BRONCHITIS [facility] UNSPECIFIED INC Medications Na ND Rx Da Fi Fi Am Da Di Ph RX Ph St me C No te ll ll ou ys ag ar # ys at rm s nt no ma ic us Or Da si cy ia de te s n re d LI 54 02 03 30 30 00 WA Ac SI 45 -0 -0 .0 00 L- ti NO 80 7- 3- 00 07 MA ve RI 99 20 20 46 RT IL 61 17 17 21 0 92 PH 20 AR MA MG CY TA #5 BL 91 ET VE 00 02 03 18 17 00 WA Ac NT 17 -0 -0 .0 00 L- ti OL 30 7- 3- 00 07 MA ve IN 68 20 20 46 RT 22 17 17 18 HF 0 69 PH A AR 90 MA CY MC G #5 IN 91 VARGAS LE R LI 54 01 02 30 30 00 WA Ac SI 45 -0 -0 .0 00 L- ti NO 80 07 MA ve RI 99 20 20 46 RT IL 61 17 17 21 0 92 PH 20 AR MA MG CY TA #5 BL 91 ET AM 00 01 02 20 10 00 CO Ac OX 78 -0 -0 .0 00 L- ti -C 11 07 MA ve LA 85 20 20 46 RT V 22 17 17 21 87 0 82 PH 5- AR 12 MA 5 CY MG #5 TA 91 BL ET VE 00 01 02 18 17 00 CO Ac NT 17 -0 -0 .0 00 L- ti OL 30 07 MA ve IN 68 20 20 46 RT 22 17 17 18 HF 0 69 PH A AR 90 MA CY MC G #5 IN 91 VARGAS LE R BE 68 01 02 15 5 00 CO Ac NZ 38 -0 -0 .0 00 L- ti ON 20 07 MA ve AT 24 20 20 46 RT AT 70 17 17 18 E 1 68 PH 10 AR 0 MA MG CY CA #5 PS 91 UL E Procedures Procedure DOS Code Location Performer Comment BRNCDILAT 58409 [facility] HARVEY JR RSPSE 7 [facility] PRE&POST- P BRNCDILAT ADMN LIPID 81346 GIDEON MENESES PANEL 7 [facility] INC INC BILIRUBIN 12254 GIDE[facility] MENESES DIRECT 7 [facility] INC INC CYANOCOBA 62470 GIDEON MENESES EDINSON 7 [facility] VITAMIN INC INC B-12 BLOOD 86627 G[facility] MENESES COUNT 7 [facility] COMPLETE INC INC AUTO&AUTO DIFRNTL WBC COMPREHEN 53767 [facility] MENESES SIVE 7 [facility] [place] [address] GIDEON MENESES FREE 7 [facility] [place] [address] GIDEON MENESES THYROID 7 [facility] STIMULATI [place] [address] GIDEON MENESES STREPTOCO 7 [facility] CCUS INC INC GROUP A IAADI 93453 GIDEON MENESES INFLUENZA 7 [facility] B VIRUS INC INC IAADI 79199 GIDEON MENESES INFFLUENZ 7 [facility] A A VIRUS INC INC CUL BACT 45888 GIDEON MENESES XCPT 7 [facility] URINE INC INC BLOOD/STO OL AEROBIC ISOL RADIOLOGI 81671 [place] [facility] EXAM 7 MEDICAL CHEST 2 IMAGING VIEWS ASS FRONTAL&L ATERAL RADIOLOGI 50887 GIDEON MENESES C EXAM 6 [facility] CHEST 2 INC INC VIEWS FRONTAL&L ATERAL NATRIURET 82382 G[facility] MENESES IC 6 [facility] PEPTIDE INC INC PRESSURIZ 43048 GIDEON MENESES ED/NONPRE 6 [facility] SSURIZED INC INC INHALATIO N TREATMENT THERAPEUT 65120 [facility] MENESES IC 6 [facility] INJECTION INC INC IV PUSH EACH NEW DRUG CREATINE 34936 GIDEON MENESES KINASE 6 [facility] TOTAL INC INC BLOOD 80355 GIDEON MENESES COUNT 6 [facility] COMPLETE INC INC AUTO&AUTO DIFRNTL WBC CULTURE 38575 G[facility] MENESES BACTERIAL 6 [facility] BLOOD INC INC AEROBIC W/ID ISOLATES THER 82933 GIDEON MENESES PROPH/DX 6 [facility] NJX IV INC INC PUSH SINGLE/1S T SBST/[place] [address] GIDEON MENESES TROPONIN 6 [facility] QUANTITAT INC INC CHEPE COMPREHEN 60043 G[facility] MENESES SIVE 6 [facility] METABOLIC INC INC PANEL CREATINE 53221 GIDEON MENESES KINASE MB 6 [facility] [place] [address] GIDEON MENESES LACTATE 6 [facility] INC INC Encounters Encounter Start End Date Code Location Performer Type Date [facility] GIDEON Trinidad 7 [facility] OUTPATIEN INC [facility] GIEDON Trinidad 7 [facility] OUTPATIEN INC T INITIAL 73305 [facility] MANJINDER DOUGLASIV 7 7 PHYSICIAN E S GROUP MEDICINE NEW PATIENT 40-64YRS [facility] GIDEON - 7 7 [facility] OUTPATIEN INC T EMERGENCY 45964 RAY ALICEA 7 7 [facility] T VISIT HIGH/URGE NT SEVERITY EMERGENCY 64662 GIDEON 7 7 [facility] VISIT LIMITED/M INOR PROB EMERGENCY 93984 GIDEON 6 6 [facility] T VISIT MODERATE SEVERITY HOSPITAL GIDEON - 6 6 [facility]
--- OUTSIDE RECORDS SUMMARY | 2016-11-02 10:47 | External Medical Summary Rpt ---
Author Author MAYURI Mcmullen, MAYURI Mcmullen Organization [employer] Address Unknown Phone Unavailable
--- OUTSIDE RECORDS SUMMARY | 2016-11-02 10:47 | External Medical Summary Rpt ---
Demographics Preferred Language Malian Marital Status Unknown Gnosticism Affiliation Unknown Race Unknown Ethnic Group Unknown Author Author , Organization [employer] Address Unknown Phone Unavailable Purpose Continuity of Care Document - through 2016 Immunization No patient found.
--- OUTSIDE RECORDS SUMMARY | 2016-11-02 10:47 | External Medical Summary Rpt ---
Author Author , Organization [employer] Address Unknown Phone Unavailable Care Team Providers Care Issue Clerk Name Role Phone BEINEKE, BEGAYEKE Unavailable Unavailable MANJINDER DUNBAR Unavailable Unavailable [facility] Unavailable Unavailable INC, [facility] Unavailable Unavailable HOSPITAL P, [facility] Unavailable Unavailable IM[facility]ING [facility], [facility] WES NELSON, WES NELSON Unavailable Unavailable [facility], Unavailable Unavailable PLL[facility], [facility] RENJADIEL, DEANNE Unavailable Unavailable Purpose Continuity of Care Document - 05-15-2016 through 2016 Problems Code Diagnosis DOS Provider Status J4530 MILD 09-24-2016 [facility] P UNCOMPLICAT ED R5383 OTHER 08-15-2016 [place] FATIGUE [facility] INC Z0000 ENCOUNTER 08-15-2016 [place] GEN ADULT [facility] MED EXAM INC W/O ABNORMAL FIND I10 ESSENTIAL 06-23-2016 [place] PRIMARY [facility] HYPERTENSIO INC N J069 ACUTE UPPER 06-23-2016 [facility] INFECTION UNSPECIFIED J9811 ATELECTASIS 06-23-2016 [facility] R05 COUGH 06-23-2016 [facility], [facility] J209 ACUTE 05-15-2016 [place] BRONCHITIS [facility] UNSPECIFIED INC Medications Na ND Rx [...] 80 7- 3- 00 07 MA ve [place] 99 20 20 46 RT IL 61 [...] L- ti NO 80 07 MA ve NY 99 20 20 46 RT IL 61 17 17 21 0 92 PH 20 AR MA MG CY TA #5 BL 91 ET AM 00 01 02 20 10 00 MI Ac OX 78 -0 -0 .0 00 L- ti -C 11 07 MA ve LA 85 20 20 46 RT V 22 17 17 21 87 0 82 PH 5- AR 12 MA 5 CY MG #5 TA 91 BL ET VE 00 01 02 18 17 00 MI Ac NT 17 -0 -0 .0 00 L- ti OL 30 07 MA ve IN 68 20 20 46 RT 22 17 17 18 HF 0 69 PH A AR 90 MA CY MC G #5 IN 91 VARGAS LE R BE 68 01 02 15 5 00 MI Ac NZ 38 -0 -0 .0 00 L- ti ON 20 07 MA ve AT 24 20 20 46 RT AT 70 17 17 18 E 1 68 PH 10 AR 0 MA MG CY CA #5 PS 91 UL E Procedures Procedure DOS Code Location Performer Comment BRNCDILAT 52923 GIDEON HARVEY JR RSPSE 7 [facility] PRE&POST- P BRNCDILAT ADMN LIPID 39748 GIDEON MENESES PANEL 7 [facility] INC INC BILIRUBIN 56312 GIDEON MENESES DIRECT 7 [facility] INC INC CYANOCOBA 25521 GIDEON MENESES EDINSON 7 [facility] VITAMIN INC INC B-12 BLOOD 15201 G[facility] MENESES COUNT 7 [facility] COMPLETE INC INC AUTO&AUTO DIFRNTL WBC COMPREHEN 51381 [facility] MENESES SIVE 7 [facility] [place] [address] GIDEON MENESES FREE 7 [facility] [place] [address] GIDEON MENESES THYROID 7 [facility] STIMULATI [place] [address] GIDEON MENESES STREPTOCO 7 [facility] CCUS INC INC GROUP A IAADI 91316 GIDEON MENESES INFLUENZA 7 [facility] B VIRUS INC INC IAADI 59169 G[facility]ON MENESES INFFLUENZ 7 [facility] A A VIRUS INC INC CUL BACT 68125 GIDEON MENESES XCPT 7 [facility] URINE INC INC BLOOD/STO OL AEROBIC ISOL RADIOLOGI 24977 [place] [facility] EXAM 7 MEDICAL CHEST 2 IMAGING VIEWS ASS FRONTAL&L ATERAL RADIOLOGI 58058 GIDEON MENESES C EXAM 6 [facility] CHEST 2 INC INC VIEWS FRONTAL&L ATERAL NATRIURET 64687 G[facility] MENESES IC 6 [facility] PEPTIDE INC INC PRESSURIZ 27024 GIDEON MENESES ED/NONPRE 6 [facility] SSURIZED INC INC INHALATIO N TREATMENT THERAPEUT 55385 [facility] MENESES IC 6 [facility] INJECTION INC INC IV PUSH EACH NEW DRUG CREATINE 16652 GIDEON MENESES KINASE 6 [facility] TOTAL INC INC BLOOD 60411 GIDEON MENESES COUNT 6 [facility] COMPLETE INC INC AUTO&AUTO DIFRNTL WBC CULTURE 29527 G[facility] MENESES BACTERIAL 6 [facility] BLOOD INC INC AEROBIC W/ID ISOLATES THER 55680 GIDEON MENESES PROPH/DX 6 [facility] NJX IV INC INC PUSH SINGLE/1S T SBST/[place] [address] GIDEON MENESES TROPONIN 6 [facility] H[facility] QUANTITAT INC INC CHEPE COMPREHEN 95193 GIDEON MENESES SIVE 6 [facility] METABOLIC INC INC PANEL CREATINE 74834 GIDEON MENESES KINASE MB 6 [facility] [place] [address] GIDEON MENESES LACTATE 6 [facility] INC INC Encounters Encounter Start End Date Code Location Performer Type Date [facility] GIDEON Trin[place] 7 [facility] OUTPATIEN INC [facility] GIDEON Trinidad 7 [facility] OUTPATIEN INC T INITIAL 87656 [facility] MANJINDER DOUGLASIV 7 7 PHYSICIAN E S GROUP MEDICINE NEW PATIENT 40-64YRS [facility] GIDEON - 7 7 [facility] OUTPATIEN INC T EMERGENCY 35582 RAY ALICEA 7 7 [facility] T VISIT HIGH/URGE NT SEVERITY EMERGENCY 29174 GIDEON 7 7 [facility] VISIT LIMITED/M INOR PROB EMERGENCY 81848 GIDEON 6 6 [facility] T VISIT MODERATE SEVERITY HOSPITAL GIDEON - 6 6 [facility] T
[2016-11-02] MEDS ORDERED: AUGMENTIN 875-1 EACH PO (10:59)
[2016-11-02] MEDS ORDERED: FLONASE 50 MCG16 GM (10:59)
--- NOTE | 2016-11-02 11:01 | Urgent Treatment Center Report ---
History of Present Issue Date/Time Seen by Provider 11/02/16 1053 Visit Reason Pt arrived:Walked Presenting Problem:PT STATES HEAD AND CHEST CONGESTION FOR A WEEK. STATES HARD TO HEAR FROM EAR FULLNESS FOR PAST THREE DAYS Location if Accident: Onset of symptoms date/time:/ or onset unknown for:MEDICAL HX UNKNOWN Have you (or family members/close friends) recently traveled outside the [place]? N If Yes, where/when: Have you had exposure to infectious disease within the past month? TB? Other? Specify: Source patient, RN notes reviewed Exam Limitations no limitations Comment Ear pain and pressure, sinus congestion, cough X 1 week. Seen in ER 5 days ago, given EES and Prednisone. Prednisone gave her a headache and she stopped taking it. Cough non productive. NO fever. Denies N/V/D. ALLERGIES Coded Allergies: adhesive (S-BLISTERING WELTS 08/28/15) prednisone (11/02/16) Home Medications Active Scripts CETIRIZINE HCL (Zyrtec) 10 MG PO DAILY #30 TAB Ref 6 Prov: 08/28/15 LISINOPRIL (Lisinopril) 20 MG PO DAILY #30 TAB Ref 2 Prov: 06/24/16 Reported Medications Ranitidine Hcl (Zantac) 150 MG PO DAILY History Medical History General CAD? No Angina: No [place]: No Hypertension? Yes Hyperlipidemia? Yes CHF? No DVT? No PE? No COPD? No Asthma? Yes Anemia? No GERD? No Gastric ulcers? No GI Bleed? No Hernia? Yes Thyroid Problems? No Hypothyroidism? No CVA? No Seizures? No Diabetes? No Insulin Dependent: No Insulin Pump: No Home FSBS? No Renal Insuffiency? No UTI? No Stones? No BPH? No GB Disease: No Nephritic Syndrome? No Asplenia? No Hepatitis? No Sickle Cell Disease? No Arthritis? No Migraines? No Cataracts? No Glaucoma? No MRSA? No HIV? No TB? No Anxiety? No Depression? No Cancer? No More? 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 Respiratory cough Physical Exam Vital Signs Vital Signs Date Time Temp Pulse Resp B/P Pulse O2 O2 Flow FiO2 Ox Delivery Rate 11/02 1044 98.0 78 18 132/79 94 General Appearance normal appearance, WD/WN, no apparent distress Ear, Nose, Throat abnormal TM (R), abnormal TM (L), sinus pain/drainage, hearing decreased Respiratory Status No: respiratory distress. Cardiovascular regular rate/rhythm Extremities non-tender, normal range of motion Neurologic alert, oriented x 3 Medical Decision Making LABS/Meds/Orders Pt receiving controlled substance in ED? No Departure Departure Time of Disposition 1057 Disposition DC Home or Self Care(routine) Clinical Impression Primary Impression: Otitis media Qualifiers: Otitis media type: suppurative Laterality: right Chronicity: acute Recurrence: not specified as recurrent Spontaneous tympanic membrane rupture: without spontaneous rupture Qualified Code: H66.001 - Acute suppurative otitis media without spontaneous rupture of ear drum, right ear Condition STABLE Referrals Jacy BEAN,Aneesh Villalba (Family) Patient Instructions DI for Otitis Media (Middle Ear Infection)-Child Discharge Counseling Counseled pt/family regarding diagnosis, medications/RX, follow up needs Prescriptions Current Visit Scripts Amoxicillin/Potassium Clav (Augmentin 875-125 Tablet) 1 EACH PO BID #20 TAB Fluticasone Propionate (Flonase 50 Mcg Nasal [place]) 1 SPRAY NA BID #1 BOT at 1100
[2016-11-02 11:03] VITALS: BP 132/79
== END 2016-11-02 11:05 | disposition home or self-care (01) ==
LOC: UTC 10:36
DX: H66.001 Acute suppurative otitis media without spontaneous rupture of ear drum, right ear (principal); I10 Essential (primary) hypertension

== ENCOUNTER → 2017-02-17 | Day surgery (SDC) | payer MEDICAID ==
[~2017-02-17] MED LIST changes: +ALLEGRA ALLERGY60 MG PO; +FLONASE 50 MCG16 GM; +NORVASC 5MG. TAB5 MG PO
--- NOTE | 2017-02-17 15:00 | RADIOLOGY REPORT PS360 ---
Procedure: Transesophageal echocardiogram Indication for procedure: 2-D evaluate aortic valve FOR aortic stenosis, abnormal transthoracic echocardiogram. Procedure: Patient was brought in to the cardiac catheter lab holding area in hemodynamically stable condition, after the informed consent conscious sedation was provided by anesthesiologist, local anesthesia was applied and transesophageal echocardiogram was performed without any difficulty. Patient tolerated the procedure well. Findings: 1. The left atrium is mildly enlarged, left atrial appendage is free of thrombus, there is good appendage flow by spectral Doppler. 2. The right atrium is normal size. 3. The intra-atrial septum is intact, there is no flow across the intra-atrial septum, agitated saline contrast study fails to identify intracardiac shunt. 4. The aortic valve is trileaflet, there is minimally thickened and calcified, the right coronary cusp as nodular calcification, morphologically there is no aortic stenosis, there is no aortic insufficiency seen. 5. The mitral valve leaflets are minimally thickened, there is no mitral stenosis, there is mild mitral regurgitation. 6. The tricuspid valve is structurally normal, there is mild tricuspid regurgitation. 7. The pulmonic valve is structurally normal. 8. The right ventricle is qualitatively mildly enlarged with normal contractility. 9. The left ventricle is normal size, there is preserved left ventricular systolic function, visually estimated ejection fraction of 55% with no obvious regional wall motion abnormality in the obtained views. 10. No significant pericardial effusion noted. 11. Ascending, arch and descending thoracic aorta there is no aneurysm or dissection, nonmobile by atheromatous plaque seen in the descending thoracic aorta. Conclusion: 1. Mildly enlarged left atrium, normal left ventricular size, visually estimated ejection fraction of 55% with no obvious regional wall motion abnormality. 2. Thickened and calcified aortic valve, the aortic valve is trileaflet, there is no aortic stenosis morphologically. There is no aortic insufficiency. 3. Agitated saline contrast study fails to identify intracardiac shunt. 4. Mild mitral and tricuspid regurgitation. 5. Nonmobile atheromatous plaque seen in the descending thoracic aorta. 6. No significant pericardial effusion noted.
== END ==
LOC: SDC 12:06
PROVIDERS: Internal Medicine Cardiovascular Disease
PROC: B246ZZ4 Ultrasonography of Right and Left Heart, Transesophageal (ICD-10-PCS; principal; 2017-02-17 13:00)
DX: I35.0 Nonrheumatic aortic (valve) stenosis (principal); R93.1 Abnormal findings on diagnostic imaging of heart and coronary circulation
CPT/HCPCS: G0463

== ENCOUNTER 2017-03-13 14:47 | Emergency (ER) | payer MEDICAID ==
[~2017-03-13] VITALS: Ht 157.5 cm; Wt 99.8 kg
--- NOTE | 2017-03-13 15:37 | Urgent Treatment Center Report ---
History of Present Issue Date/Time Seen by Provider 03/13/17 1537 Visit Reason Pt arrived:Walked Presenting Problem:C/O VARGAS, SORE THROAT AND CONGESTION X2 DAYS Location if Accident: Onset of symptoms date/time:/ or onset unknown for:MEDICAL HX UNKNOWN Have you (or family members/close friends) recently traveled outside the [place]? N If Yes, where/when: Have you had exposure to infectious disease within the past month? TB? Other? Specify: Patient complaining of not feeling well States that she has been having headache , sorethroat, sinus pain and congestion for several days now States that she has continued to feel worse over the last few days States that she was worried that she may have the flu ALLERGIES Coded Allergies: prednisone (11/02/16) Uncoded Allergies: ASHESIVES (01/04/17) Home Medications Active Scripts Amlodipine Besylate (Norvasc) 5 MG PO DAILY #30 TAB Prov: 01/04/17 LISINOPRIL (Lisinopril) 20 MG PO DAILY #30 TAB Ref 2 Prov: 06/24/16 Fluticasone Propionate (Flonase 50 Mcg Nasal Russell) 1 SPRAY NA BID #1 BOT Prov: 11/02/16 Reported Medications Ranitidine Hcl (Zantac) 150 MG PO DAILY FEXOFENADINE HCL (Jackelin Allergy) 60 MG PO DAILY History Medical History General CAD? No Angina: No [place]: No Hypertension? Yes Hyperlipidemia? Yes CHF? No DVT? No PE? No COPD? No Asthma? Yes Anemia? No GERD? Yes Gastric ulcers? No GI Bleed? No Hernia? Yes Thyroid Problems? No Hypothyroidism? No CVA? No Seizures? No Diabetes? No Insulin Dependent: No Insulin Pump: No Home FSBS? No Renal Insuffiency? No UTI? No Stones? No BPH? No GB Disease: No Nephritic Syndrome? No Asplenia? No Hepatitis? No Sickle Cell Disease? No Arthritis? No Migraines? No Cataracts? No Glaucoma? No MRSA? No HIV? No TB? No Anxiety? No Depression? No Cancer? No More? No Immunization HX DT/Tetanus 1-4 Years Ago Flu Refused Pneumonia Received In Past Surgical Hx Previous Surgery?Y ROTATOR CUFF RIGHT EGD DIAGNOSITIC LAP Tubal Ligation GI SCOPE 12/06/10 D&C,LAP IN 10/02 Family History Family HX Diabetes Yes CAD Yes Hypertension Yes Hyperlipidemia Yes Cancer No TB No Social History Smoking Hx Smoker: Never Smoker Tobacco: No Are you/the child exposed to second-hand smoke: No Alcohol Alcohol: No Review of Systems All Other Systems Reviewed and Negative Constitutional chills ENT ear pain, nose congestion, throat pain. Physical Exam Vital Signs Vital Signs Date Time Temp Pulse Resp B/P Pulse O2 O2 Flow FiO2 Ox Delivery Rate 03/13 1451 99.1 96 20 163/70 96 General Appearance normal appearance, WD/WN, no apparent distress Ear, Nose, Throat sinus pain/drainage, nasal congestion, throat red irritated tenderness noted maxillary sinsues Respiratory Status Yes: trachea midline, chest symmetrical, non tender chest. No: respiratory distress. Cardiovascular normal exam, regular rate/rhythm, no peripheral edema, no gallop Neurologic alert, legal biller II-XII nml as tested, normal exam, no motor/sensory deficits, oriented x 3 Medical Decision Making LABS/Meds/Orders Pt receiving controlled substance in ED? No Results/Orders Laboratory Tests 03/13/17 1552: Influenza Type A Ag NOT DETECTED, Influenza Type B Ag NOT DETECTED, Group A Strep Screen NOT DETECTED Orders Procedure Date/time Status UTC STREP SCREEN 03/13 1546 Complete UTC FLU A,B 03/13 1546 Complete Departure Departure Time of Disposition 1627 Disposition DC Home or Self Care(routine) Clinical Impression Primary Impression: Upper respiratory infection Qualifiers: URI type: unspecified URI Qualified Code: J06.9 - Acute upper respiratory infection, unspecified Condition STABLE Referrals Jacy BEAN,Aneesh Villalba (Family) Patient Instructions Cough, Sore Throat Additional Instructions * Monitor Temp. Tylenol and/or Ibuprofen as needed. ER if fever is no less than 101 despite alternating Tylenol and Ibuprofen * Encourage fluids, water, Gatorade, powerade, pedialyte if /toddler/or child * Warm salt water gargles for throat irritation *Warm fluids *Sore throat lozenges *Sleep elevated *humidifier or vaporizer Follow up IMMEDIATELY for new or worsening of symptoms OR no noticeable improvement over the next 48-72 hours. 911 immediately for any life threatening symptoms such as chest pain or difficulty breathing Discharge Counseling Counseled pt/family regarding diagnosis, test results, home care, follow up needs Prescriptions Current Visit Scripts Azithromycin (Zithromycin (Z-TYSON) 250MG Tab) 250 MG PO DAILY #6 TAB TAKE TWO (2) TABLETS ON DAY 1, THEN ONE (1) TABLET DAY #2 THRU #5 at 6932
[2017-03-13 16:10] LABS: UTC STREP SCREEN NOT DETECTED (NOTDETECTED)
[2017-03-13] MEDS ORDERED: ZITHROMAX Z PA250 MG PO (16:29)
[2017-03-13 16:32] VITALS: BP 163/70
== END 2017-03-13 16:36 | disposition home or self-care (01) ==
LOC: UTC 14:47
PROVIDERS: Nurse Practitioner
DX: J06.9 Acute upper respiratory infection, unspecified (principal); I10 Essential (primary) hypertension; Z79.899 Other long term (current) drug therapy; K21.9 Gastro-esophageal reflux disease without esophagitis

== ENCOUNTER 2017-05-01 20:00 | Emergency (ER) | payer MEDICAID ==
[~2017-05-01] VITALS: Ht 157.5 cm; Wt 93.0 kg
--- OUTSIDE RECORDS SUMMARY | 2017-05-01 20:07 | External Medical Summary Rpt | CCD ---
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 Name Role Phone Jose Warnre MD, Unavailable Unavailable Jose Warner MD Purpose Continuity of Care Document - 08-15-2012 through 2016 Problems Code Diagnosis DOS Provider Status [id number] Chest pain [facility] I10 ESSENTIAL (PRIMARY) HYPERTENSIO N I16.9 HYPERTENSIV E CRISIS, UNSPECIFIED [id number] J06.9 ACUTE UPPER RESPIRATORY INFECTION, UNSPECIFIED J18.9 PNEUMONIA, UNSPECIFIED ORGANISM J20.9 ACUTE BRONCHITIS, UNSPECIFIED J40 BRONCHITIS, NOT SPECIFIED ACUTE OR CHRONIC M79.1 MYALGIA M79.2 NEURALGIA AND NEURITIS, UNSPECIFIED R01.1 CARDIAC MURMUR, UNSPECIFIED R06.02 SHORTNESS OF BREATH R07.89 OTHER CHEST PAIN R09.02 HYPOXEMIA R10.9 UNSPECIFIED ABDOMINAL PAIN R50.9 FEVER, UNSPECIFIED R51 HEADACHE 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, LEFT EYE, INIT Z91.19 PATIENT'S NONCOMPLIAN CE W OTH MEDICAL TREATMENT AND REGIMEN Allergies, Adverse Reactions, Alerts Type Allergy to substance Drug Allergy Adverse Reaction to Substance Substance Reaction Severity Adhesive S-BLISTERING WELTS Unknown NO KNOWN DRUG Unknown Unknown ALLERGIES Medications Na ND Rx Da Fi Fi Am Da Di Ph RX Ph St me C No te ll ll ou ys ag ar # ys at rm s nt no ma ic us Or Da si cy ia de te s n re d Sa 63 01 0 No li 80 [...] Ml ti ve Sy ri ng e SO 00 [...] ti 9% ve 50 ML Ad v Ib 62 07 0 No up 58 -1 ro 40 5- Lo fe 74 20 ng n 70 13 er 60 1 0M Ac G ti Ta ve bl et Sa 63 07 0 No li 80 -1 ne 70 5- Lo 10 20 ng Fl 07 13 er us 5 h Ac 10 ti ML ve Sy ri ng e IP 00 02 0 No RA 48 -2 T- 70 3- Lo AL 20 20 ng BU 10 13 er T 1 0. Ac 5- ti 3( ve 2. 5) MG /3 ML VE 00 02 0 No NT 17 -2 OL 30 3- Lo IN 68 20 ng 22 13 er HF 4 A Ac 90 ti ve MC G IN VARGAS LE R Ae 08 02 0 No ro 37 -2 ch 30 3- Lo am 76 20 ng be 50 13 er r/ 0 Op Ac ti ti vargas ve le r OH 00 02 0 No ED 05 -2 [...] Order Detail nces retati t Range on Influenza virus A+B Ag [Presence] in Unspecified specimen (03-13-2017 15:52) Influen NOT NOT complet za 017 DETECTE DETECTD ed virus A 15:52 D Ag [Presen ce] in Unspeci fied specime n INFLUEN NOT NOT complet ZA B 017 DETECTE DETECTD ed ANTIGEN 15:52 D Streptococcus pyogenes Ag [Presence] in Unspecified specimen (03-13-2017 15:52) Strepto NOT NOTDETE complet coccus 017 DETECTE CTED ed pyogene 15:52 D s Ag [Presen ce] in Unspeci fied specime n BASIC METABOLIC PANEL (07-21-2013 07:50) Glucose 87 [...] 014 mmoL/L .0 ed Cnc 07:50 Calcium 07-21-2 8.2 8.5-10. complet 014 mg/dL 1 ed SerPl-m 07:50 Cnc CBC with AUTO DIFF (07-21-2013 07:50) WBC # -29-2 8.9 4.8-10. complet Bld 014 K/MM3 8 ed Auto 07:50 RBC # 07-21-2 5.07 4.2-5.4 complet Bld 014 M/mm3 ed Auto 07:50 Hgb 07-21-2 15.0 12.2-16 complet Bld-mCn 014 g/dL .2 [...] 014 4 ed T 07:50 VOLUME Granulo 2 62.3 % 37.0-80 complet cytes 014 .0 [...] 014 K/mm3 ed Bld 07:50 Auto Lymphoc 01-29-2 2.5 0.7-4.5 complet ytes Fr 014 K/mm3 [...] 18:00 COMPREHENSIVE METABOLIC PANEL (04-11-2013 16:40) Glucose 10-20-2 92 74-106 complet 013 mg/dL ed Bld-mCn 16:40 c BUN 10-20-2 12 7-18 complet Bld-mCn 013 mg/dL ed c 16:40 Creat 10-20-2 0.6 0.6-1.0 complet SerPl-m 013 mg/dL ed Cnc 16:40 ESTIMAT 10-20-2 162 50-200 complet ED 013 ML/MIN ed CREATIN 16:40 INE CLEARAN CE GFR 20-2 106 59- complet (ESTIMA 013 ML/MIN ed HUEY) 16:40 Sodium 20-2 141 136-145 complet SerPl-s 013 mmoL/L ed Cnc 16:40 Potassi 20-2 3.8 3.5-5.1 complet um 013 mmoL/L ed SerPl-s 16:40 Cnc Chlorid 20-2 105 98-107 complet e 013 mmoL/L ed SerPl-s 16:40 Cnc CO2 20-2 28 21.0-32 complet SerPl-s 013 mmoL/L .0 ed Cnc 16:40 Calcium 1020-2 8.7 8.5-10. complet 013 mg/dL 1 ed SerPl-m 16:40 Cnc Prot 1020-2 7.1 6.4-8.2 complet SerPl-m 013 gm/dL ed Cnc 16:40 Albumin 20-2 3.6 3.4-5.0 complet 013 gm/dL ed SerPl-m 16:40 Cnc Globuli 20-2 3.5 1.3-3.2 complet n 013 gm/dL ed Ser-mCn 16:40 c Albumin 20-2 1.0 UNK 1.1-1.8 complet /Glob 013 ed SerPl-m 16:40 Rto Bilirub 1020-2 0.2 0.2-1.0 complet 013 mg/dL ed SerPl-m 16:40 Cnc AST 10-20-2 18 U/L 15-37 complet SerPl-c 013 ed Cnc 16:40 ALT 10-20-2 35 U/L 30-65 complet SerPl-c 013 ed Cnc 16:40 ALP 10-20-2 130 U/L 50-136 complet SerPl-c 013 ed Cnc 16:40 Amylase SerPl-cCnc (10-20-2013 16:40) Amylase 10-20-2 53 U/L 25-115 complet 013 ed SerPl-c 16:40 Cnc LIPASE (04-11-2013 16:40) LIPASE 10-20-2 114 U/L 73-393 complet 013 ed 16:40 [...] complet 013 .8 ed 16:40 MCH RBC 20-2 30.4 pg 27-31.2 complet Qn 013 ed [...] Auto BASIC METABOLIC PANEL (01-04-2013 19:48) Glucose 15-2 110 74-106 complet 013 mg/dL ed Bld-mCn 19:48 c BUN 15-2 10 7-18 complet Bld-mCn 013 mg/dL ed c 19:48 Creat 01-04-2 0.8 0.6-1.0 complet SerPl-m 013 mg/dL ed Cnc 19:48 GFR 01-04-2 76 59- complet (ESTIMA 013 ML/MIN ed HUEY) 19:48 Sodium 01-04-2 137 136-145 complet SerPl-s 013 mmoL/L ed Cnc 19:48 Potassi 01-04-2 3.3 3.5-5.1 complet um 013 mmoL/L ed SerPl-s 19:48 Cnc Chlorid 01-04-2 102 98-107 complet e 013 mmoL/L ed SerPl-s 19:48 Cnc CO2 01-04-2 26 21.0-32 complet SerPl-s 013 mmoL/L .0 ed Cnc 19:48 Calcium 15-2 8.5 8.5-10. complet 013 mg/dL 1 ed SerPl-m 19:48 Cnc CBC with AUTO DIFF (01-04-2013 19:48) WBC # 07-15-2 15.2 4.8-10. complet Bld 013 K/MM3 8 ed Auto 19:48 RBC # 07-15-2 4.82 4.2-5.4 complet Bld 013 M/mm3 ed Auto 19:48 Hgb -15-2 14.4 12.2-16 complet Bld-mCn 013 g/dL .2 ed c 19:48 Hct Fr 07-15-2 43.1 % 37.0-47 complet Bld 013 .0 ed 19:48 MCV RBC 07-15-2 89.3 fl 82.2-97 complet 013 .8 ed 19:48 MCH RBC 07-15-2 29.9 pg 27-31.2 complet Qn 013 ed [...] Bld 19:48 Auto URINALYSIS/COMPLETE (01-04-2013 19:00) URINE 15-2 YELLOW YELLOW complet COLOR 013 ed 19:00 URINE 15-2 CLEAR CLEAR complet APPEARA 013 ed NCE 19:00 URINE 15-2 NEGATIV NEG complet GLUCOSE 013 E ed - 19:00 DIPSTIC K URINE 15-2 NEGATIV NEG complet BILIRUB 013 E ed IN - 19:00 DIPSTIC K URINE 15-2 NEGATIV NEG complet KETONE 013 E mg/dL ed 19:00 URINE 15-2 1.015 1.005-1 complet SPECIFI 013 UNK .030 ed C 19:00 GRAVITY URINE 15-2 1+ NEG complet BLOOD 013 ed 19:00 URINE 01-04-2 6.5 UNK 5.0-8.5 complet PH 013 ed 19:00 URINE 15-2 NEGATIV NEG complet PROTEIN 013 E mg/dL ed - 19:00 DIPSTIC K URINE 15-2 0.2 NEG complet UROBILI 013 E.U./dL ed NOGEN - 19:00 DIPSTIC K URINE 15-2 NEGATIV NEG complet NITRATE 013 E ed - 19:00 DIPSTIC K URINE 15-2 NEGATIV NEG complet LEUK 013 E ed ESTERAS 19:00 E URINE 01-04-2 3-5 0 complet RBC 013 rbc/hpf ed 19:00 URINE 15-2 OCC 0-5 complet SQUAMOU 013 #/hpf ed S CELLS 19:00 Encounters Encounter Start End Date Code Location Performer Type Date Emergency LAKIA BERNSTEIN MD (ER) 4 08:23 4 12:18 [facility] Emergency LAKIA Louie MD (ER) 3 16:36 3 19:17 [facility] Emergency LAKIA Louie MD (ER) 3 18:18 3 21:14 [facility] Emergency LAKIA Anderson (ER) 3 20:44 3 22:41 [facility]
--- OUTSIDE RECORDS SUMMARY | 2017-05-01 20:07 | External Medical Summary Rpt | CCD ---
Author Author , MAYURI MESSINA Address Unknown Phone [email or web address] 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 Name Role Phone Jose Warner MD, Unavailable Unavailable Jose Warner MD Purpose Continuity of Care Document - 08-15-2012 through 2016 Problems Code Diagnosis DOS Provider Status [id number] Chest pain [facility] I10 ESSENTIAL (PRIMARY) HYPERTENSIO N I16.9 HYPERTENSIV E CRISIS, UNSPECIFIED [id number] J06.9 ACUTE UPPER RESPIRATORY INFECTION, UNSPECIFIED J18.9 [...] Ac ti ti vargas ve le r IN 00 02 0 No ED 05 -2 [...] BERNSTEIN MD (ER) 4 08:23 4 12:18 [facility] Emergency LAKIA Louie MD (ER) 3 16:36 3 19:17 [facility] Emergency LAKIA Louie MD (ER) 3 18:18 3 21:14 [facility] Emergency LAKIA Anderson (ER) 3 20:44 3 22:41 [facility]
--- OUTSIDE RECORDS SUMMARY | 2017-05-01 20:08 | External Medical Summary Rpt | CCD ---
Author Author [employer] Organization [employer] Address Unknown Phone Unavailable Purpose Continuity of Care Document - through 2016
--- OUTSIDE RECORDS SUMMARY | 2017-05-01 20:08 | External Medical Summary Rpt | CCD ---
Demographics Preferred Language Malay Marital Status Unknown Sabianist Affiliation Unknown Race Unknown Ethnic Group Unknown Author Author , MAYURI MESSINA Address Unknown Phone Immunization Unable to retrieve immunization data due to connection failure with Immunization Registry. Please try again later.
--- OUTSIDE RECORDS SUMMARY | 2017-05-01 20:08 | External Medical Summary Rpt | CCD ---
Demographics Preferred Language Amharic Marital Status Unknown Amish Affiliation Unknown Race Unknown Ethnic Group Unknown Author Author , MAYURI MESSINA Address Unknown Phone Immunization Unable to retrieve immunization data due to connection failure with Immunization Registry. Please try again later.
--- OUTSIDE RECORDS SUMMARY | 2017-05-01 20:08 | External Medical Summary Rpt ---
Author Author CHUYEFRAIN Mcmullen, [employer] Organization [employer] Address Unknown Phone Unavailable Results Influenza virus A+B Ag [Presence] in Unspecified specimen Observa Value Referen Units Interpr Notes Date tion ce etation Range Influen NOT NOT No No No Sep 21 za DETECTE DETECTD informa informa informa 2017 virus A D tion in tion in tion in 3:52 PM Ag source source source [Presen data data data ce] in Unspeci fied specime n INFLUEN NOT NOT No No LOT # Sep 21 ZA B DETECTE DETECTD informa informa [id number] 2017 ANTIGEN D tion in tion in EXP 3:52 PM source source DATE data data 0 Streptococcus pyogenes Ag [Presence] in Unspecified specimen Observa Value Referen Units Interpr Notes Date tion ce etation Range Strepto NOT NOTDETE No No LOT # Sep 21 coccus DETECTE CTED informa informa N/A EXP 2017 pyogene D tion in tion in DATE 3:52 PM s Ag source source N/A [Presen data data ce] in Unspeci fied specime n Basic metabolic panel in Blood Observa Value Referen Units Interpr Notes Date tion ce etation Range Urea 7 - 18 mg/dL Normal No Sep 14 nitrogen informati 2017 7:40 [Mass/vol on in AM ume] in source Serum or data Plasma Calcium 8.5 - mg/dL Normal No Sep 14 [Mass/vol 10.1 informati 2017 7:40 ume] in on in AM Serum or source Plasma data Chloride 98 - 107 mmoL/L Normal No Sep 14 [Moles/vo informati 2017 7:40 lume] in on in AM Serum or source Plasma data Carbon 21.0 - mmoL/L Normal No Sep 14 dioxide, 32.0 informati 2017 7:40 total on in AM [Moles/vo source lume] in data Serum or Plasma Creatinin 0.55 - mg/dL Normal No Sep 14 e 1.02 informati 2017 7:40 [Mass/vol on in AM ume] in source Serum or data Plasma Estimated 59- ML/MIN No REFERENCE Sep 14 informati RANGE: 2017 7:40 glomerula on in >60 AM r source ML/MIN/1. filtratio data 73 SQUARE n rate METERSIf (GF this patient is -A merican, then multiply theresult by 1.210. Glucose 74 - 106 mg/dL Normal No Sep 14 [Mass/vol informati 2016 7:40 ume] in on in AM Serum or source Plasma data Potassium 3.5 - 5.1 mmoL/L Normal No Sep 14 informati 2016 7:40 [Moles/vo on in AM lume] in source Serum or data Plasma Sodium 136 - 145 mmoL/L Normal No Sep 14 [Moles/vo informati 2017 7:40 lume] in on in AM Serum or source Plasma data CBC W Auto Differential panel in Blood Observa Value Referen Units Interpr Notes Date tion ce etation Range Basophils 0 - 0.2 K/MM3 Normal No Sep 14 informati 2017 7:40 [#/volume on in AM ] in source Blood by data Automated count Basophils 0.1 - 2.0 % Normal No Sep 14 /100 informati 2017 7:40 leukocyte on in AM s in source Blood by data Automated count Eosinophi 0.0 - 0.4 K/mm3 Normal No Sep 14 ls informati 2016 7:40 [#/volume on in AM ] in source Blood by data Automated count Eosinophi 0.1 - % Normal No Sep 14 ls/100 12.0 informati 2016 7:40 leukocyte on in AM s in source Blood by data Automated count Granulocy 1.8 - 7.8 K/mm3 Normal No Sep 14 arleth informati 2017 7:40 [#/volume on in AM ] in source Blood by data Automated count Granulocy 37.0 - % Normal No Sep 14 arleth/100 80.0 informati 2016 7:40 leukocyte on in AM s in source Blood by data Automated count Hematocri 37.0 - % Normal No Sep 14 t [Volume 47.0 informati 2016 7:40 on in AM Fraction] source of Blood data Hemoglobi 12.2 - g/dL Normal No Sep 14 n 16.2 informati 2016 7:40 [Mass/vol on in AM ume] in source Blood data Lymphocyt 0.7 - 4.5 K/mm3 Normal No Sep 14 es informati 2017 7:40 [#/volume on in AM ] in source Unspecifi data ed specimen by Automated count Lymphocyt 10 - 50.0 % Normal No Sep 14 es informati 2017 7:40 [#/volume on in AM ] in source Unspecifi data ed specimen by Automated count Erythrocy 27 - 31.2 pg Normal No Sep 14 te mean informati 2017 7:40 corpuscul on in AM ar source hemoglobi data n [Entitic mass] Erythrocy 31.8 - g/dl Normal No Sep 14 te mean 35.4 informati 2017 7:40 corpuscul on in AM ar source hemoglobi data n concentra tion [Mass/vol ume] by Automated count Erythrocy 82.2 - fl Normal No Sep 14 te mean 97.8 informati 2017 7:40 corpuscul on in AM ar volume source [Entitic data volume] by Automated count Monocytes 0.1 - 1.0 K/mm3 Normal No Sep 14 informati 2017 7:40 [#/volume on in AM ] in source Blood by data Automated count Monocytes 1.7 - 9.3 % Normal No Sep 14 /100 informati 2017 7:40 leukocyte on in AM s in source Blood by data Automated count Platelet 7.4 - fl Normal No Sep 14 mean 10.4 informati 2017 7:40 volume on in AM [Entitic source volume] data in Blood by Automated count Platelets 142 - 424 K/mm3 Normal No Sep 14 informati 2017 7:40 [#/volume on in AM ] in source Blood data Erythrocy 4.2 - 5.4 M/mm3 Normal No Sep 14 arleth informati 2017 7:40 [#/volume on in AM ] in source Amniotic data fluid Erythrocy 11.5 - % Normal No Sep 14 te 17.5 informati 2017 7:40 distribut on in AM ion width source [Entitic data volume] by Automated count Leukocyte 4.8 - K/MM3 Normal No Sep 14 s 10.8 informati 2016 7:40 [#/volume on in AM ] in source Blood data Natriutietic peptide B [Mass/volume] in Serum or Plasma Observa Value Referen Units Interpr Notes Date tion ce etation Range Natriutie 0 - 100 pg/mL Normal No Lc 15 tic informati 2017 4:00 peptide B on in AM source [Mass/vol data ume] in Serum or Plasma Lactate [Moles/volume] in Blood Observa Value Referen Units Interpr Notes Date tion ce etation Range Lactate 0.4 - 2.0 mmol/L Normal No Jan 04 [Moles/vo informati 2016 4:00 lume] in on in AM Blood source data CBC W Auto Differential panel in Blood Observa Value Referen Units Interpr Notes Date tion ce etation Range Basophils 0 - 0.2 K/MM3 Normal No Jan 04 informati 2016 4:00 [#/volume on in AM ] in source Blood by data Automated count Basophils 0.1 - 2.0 % Normal No Jan 04 /100 informati 2016 4:00 leukocyte on in AM s in source Blood by data Automated count Eosinophi 0.0 - 0.4 K/mm3 Normal No Jan 04 ls informati 2016 4:00 [#/volume on in AM ] in source Blood by data Automated count Eosinophi 0.1 - % Normal No Jan 04 ls/100 12.0 informati 2016 4:00 leukocyte on in AM s in source Blood by data Automated count Granulocy 1.8 - 7.8 K/mm3 Normal No Jan 04 arleth informati 2016 4:00 [#/volume on in AM ] in source Blood by data Automated count Granulocy 37.0 - % Normal No Jan 04 arleth/100 80.0 informati 2016 4:00 leukocyte on in AM s in source Blood by data Automated count Hematocri 37.0 - % Normal No Jan 04 t [Volume 47.0 informati 2016 4:00 on in AM Fraction] source of Blood data Hemoglobi 12.2 - g/dL Normal No Jan 04 n 16.2 informati 2016 4:00 [Mass/vol on in AM ume] in source Blood data Lymphocyt 0.7 - 4.5 K/mm3 Normal No Jan 04 es informati 2016 4:00 [#/volume on in AM ] in source Unspecifi data ed specimen by Automated count Lymphocyt 10 - 50.0 % Normal No Jan 04 es informati 2016 4:00 [#/volume on in AM ] in source Unspecifi data ed specimen by Automated count Erythrocy 27 - 31.2 pg Normal No Jan 04 te mean informati 2016 4:00 corpuscul on in AM ar source hemoglobi data n [Entitic mass] Erythrocy 31.8 - g/dl Normal No Jan 04 te mean 35.4 informati 2016 4:00 corpuscul on in AM ar source hemoglobi data n concentra tion [Mass/vol ume] by Automated count Erythrocy 82.2 - fl Normal No Jan 04 te mean 97.8 informati 2016 4:00 corpuscul on in AM ar volume source [Entitic data volume] by Automated count Monocytes 0.1 - 1.0 K/mm3 Normal No Jan 04 informati 2016 4:00 [#/volume on in AM ] in source Blood by data Automated count Monocytes 1.7 - 9.3 % Normal No Jan 04 informati 2016 4:00 leukocyte on in AM s in source Blood by data Automated count Platelet 7.4 - fl Normal No Jan 04 mean 10.4 informati 2016 4:00 volume on in AM [Entitic source volume] data in Blood by Automated count Platelets 142 - 424 K/mm3 Normal No Jan 04 informati 2016 4:00 [#/volume on in AM ] in source Blood data Erythrocy 4.2 - 5.4 M/mm3 Normal No Jan 04 arleth informati 2016 4:00 [#/volume on in AM ] in source Amniotic data fluid Erythrocy 11.5 - % Normal No Jan 04 te 17.5 informati 2016 4:00 distribut on in AM ion width source [Entitic data volume] by Automated count Leukocyte 4.8 - K/MM3 Normal No Jan 04 s 10.8 informati 2016 4:00 [#/volume on in AM ] in source Blood data IgE [Units/volume] in Serum Observa Value Referen Units Interpr Notes Date ti ce etation Range IgE 0 - 100 IU/mL High Performed Dec 04 [Units/vo at: CB 2017 7:19 lume] in - [facility] AM Serum [address] [address] [address] [place], [place] [id number] Digital Account Supervisor: Yann Siddiqi PhD, Phone: [phone] CBC W Auto Differential panel in Blood Observa Value Referen Units Interpr Notes Date ti ce etation Range Basophils 0 - 0.2 K/MM3 Normal No Dec 04 informati 2016 7:19 [#/volume on in AM ] in source Blood by data Automated count Basophils 0.1 - 2.0 % Normal No Dalton 14 /100 informati 2016 7:19 leukocyte on in AM s in source Blood by data Automated count Eosinophi 0.0 - 0.4 K/mm3 Normal No Nov 14 ls informati 2016 7:19 [#/volume on in AM ] in source Blood by data Automated count Eosinophi 0.1 - % Normal No Nov 14 ls/100 12.0 informati 2016 7:19 leukocyte on in AM s in source Blood by data Automated count Granulocy 1.8 - 7.8 K/mm3 Normal No Nov 14 arleth informati 2016 7:19 [#/volume on in AM ] in source Blood by data Automated count Granulocy 37.0 - % Normal No Nov 14 arleth/100 80.0 informati 2016 7:19 leukocyte on in AM s in source Blood by data Automated count Hematocri 37.0 - % Normal No Nov 14 t [Volume 47.0 informati 2016 7:19 on in AM Fraction] source of Blood data Hemoglobi 12.2 - g/dL Normal No Dec 04 n 16.2 informati 2016 7:19 [Mass/vol on in AM ume] in source Blood data Lymphocyt 0.7 - 4.5 K/mm3 Normal No Nov 14 es informati 2016 7:19 [#/volume on in AM ] in source Unspecifi data ed specimen by Automated count Lymphocyt 10 - 50.0 % Normal No Nov 14 es informati 2016 7:19 [#/volume on in AM ] in source Unspecifi data ed specimen by Automated count Erythrocy 27 - 31.2 pg Normal No Nov 14 te mean informati 2016 7:19 corpuscul on in AM ar source hemoglobi data n [Entitic mass] Erythrocy 31.8 - g/dl Normal No Nov 14 te mean 35.4 informati 2016 7:19 corpuscul on in AM ar source hemoglobi data n concentra tion [Mass/vol ume] by Automated count Erythrocy 82.2 - fl Normal No Nov 14 te mean 97.8 informati 2016 7:19 corpuscul on in AM ar volume source [Entitic data volume] by Automated count Monocytes 0.1 - 1.0 K/mm3 Normal No Nov 14 informati 2016 7:19 [#/volume on in AM ] in source Blood by data Automated count Monocytes 1.7 - 9.3 % Normal No Nov 14 /100 informati 2017 7:19 leukocyte on in AM s in source Blood by data Automated count Platelet 7.4 - fl Normal No Nov 14 mean 10.4 informati 2017 7:19 volume on in AM [Entitic source volume] data in Blood by Automated count Platelets 142 - 424 K/mm3 Normal No Nov 14 informati 2017 7:19 [#/volume on in AM ] in source Blood data Erythrocy 4.2 - 5.4 M/mm3 Normal No Nov 14 arleth informati 2017 7:19 [#/volume on in AM ] in source Amniotic data fluid Erythrocy 11.5 - % Normal No Nov 14 te 17.5 informati 2017 7:19 distribut on in AM ion width source [Entitic data volume] by Automated count Leukocyte 4.8 - K/MM3 Normal No Nov 14 s 10.8 informati 2016 7:19 [#/volume on in AM ] in source Blood data
--- OUTSIDE RECORDS SUMMARY | 2017-05-01 20:08 | External Medical Summary Rpt ---
Author Author CHUYEFRAIN Mcmullen, [employer] Organization [employer] Address Unknown Phone [...] 21 ZA B DETECTE DETECTD informa informa [id number] 2017 ANTIGEN D tion in tion in [...] 7:19 lume] in - [facility] AM Serum [address] [address] [address] [place], [place] [id number] House Rn: Yann Siddiqi PhD, Phone: [phone] CBC W Auto Differential panel in [...]
[2017-05-01 20:24] LABS: URINE BILIRUBIN - DIPSTICK NEGATIVE (NEG)
[2017-05-01 20:25] LABS: URINE BLOOD TRACE (NEG)
[2017-05-01] MEDS ORDERED: PYRIDIUM100 M2 PO (20:31)
[2017-05-01] MEDS ORDERED: MACROBID100 M3 PO (20:31)
[2017-05-01 20:32] VITALS: BP 142/65
--- NOTE | 2017-05-01 20:34 | Urgent Treatment Center Report ---
History of Present Issue Date/Time Seen by Provider 05/01/172013 Visit Reason Pt arrived:Walked Presenting Problem:BACK PAIN X2 DAYS, DENIES INJURY Location if Accident: Onset of symptoms date/time:/ or onset unknown for:MEDICAL HX UNKNOWN Have you (or family members/close friends) recently traveled outside the [place]? N If Yes, where/when: Have you had exposure to infectious disease within the past month? TB? Other? Specify: Patient state that she has noticed that for the last two days she has been having pian in her lower back area State that it has continued to get worse and she has been having pain and burning with urination thinks she may have a UTI state that she is feeling like she needs to go to the bathroom then she only goes small amounts at a time and has the burning feeling States that today she was standing at work and pain felt worse so she came in to get checked out ALLERGIES Coded Allergies: prednisone (11/02/16) Uncoded Allergies: ASHESIVES (01/04/17) Home Medications Active Scripts Azithromycin (Zithromycin (Z-TYSON) 250MG Tab) 250 MG PO DAILY #6 TAB Prov: 03/13/17 Amlodipine Besylate (Norvasc) 5 MG PO DAILY #30 TAB Prov: 01/04/17 LISINOPRIL (Lisinopril) 20 MG PO DAILY #30 TAB Ref 2 Prov: 06/24/16 Fluticasone Propionate (Flonase 50 Mcg Nasal Snyder) 1 SPRAY NA BID #1 BOT Prov: 11/02/16 Reported Medications Ranitidine Hcl (Zantac) 150 MG PO DAILY FEXOFENADINE HCL (Jackelin Allergy) 60 MG PO DAILY History Medical History General CAD? No Angina: No OK: No Hypertension? Yes Hyperlipidemia? Yes CHF? No DVT? No PE? No COPD? No Asthma? Yes Anemia? No GERD? Yes Gastric ulcers? No GI Bleed? No Hernia? Yes Thyroid Problems? No Hypothyroidism? No CVA? No Seizures? No Diabetes? No Insulin Dependent: No Insulin Pump: No Home FSBS? No Renal Insuffiency? No UTI? No Stones? No BPH? No GB Disease: No Nephritic Syndrome? No Asplenia? No Hepatitis? No Sickle Cell Disease? No Arthritis? No Migraines? No Cataracts? No Glaucoma? No MRSA? No HIV? No TB? No Anxiety? No Depression? No Cancer? No More? No Immunization HX DT/Tetanus 1-4 Years Ago Flu Refused Pneumonia Received In Past Surgical Hx Previous Surgery?Y ROTATOR CUFF RIGHT EGD DIAGNOSITIC LAP Tubal Ligation GI SCOPE 12/06/10 D&C,LAP IN 10/02 Family History Family HX Diabetes Yes CAD Yes Hypertension Yes Hyperlipidemia Yes Cancer No TB No Social History Smoking Hx Smoker: Never Smoker Tobacco: No Alcohol Alcohol: No Review of Systems All Other Systems Reviewed and Negative Genitourinary dysuria, frequency, pain. denies: discharge, vaginal discharge. Musculoskeletal back pain, other (low back pain/pain urination) Physical Exam Vital Signs Vital Signs Date Time Temp Pulse Resp B/P Pulse O2 O2 Flow FiO2 Ox Delivery Rate 05/01 2032 98.1 88 20 142/65 98 05/01 2006 98.1 96 20 148/61 98 General Appearance normal appearance, WD/WN, no apparent distress Respiratory Status Yes: trachea midline, chest symmetrical, non tender chest. No: respiratory distress. Lung Sounds bilateral: normal breath sounds, lungs clear. Cardiovascular normal exam, regular rate/rhythm Gastrointestinal normal bowel sounds, normal exam, non tender, no guarding, no rebound Back normal inspection, no CVA tenderness, no vertebral tenderness, bowel/ bladder continent Neurologic alert, normal exam, oriented x 3 Comments Pain and burning with urination and low back pain, state that she feels the urgency and freqency to go but only able to urinate small amounts and has pain/ burning with urination denies radiation of pain. State that just continued to get worse over last two days Medical Decision Making LABS/Meds/Orders Pt receiving controlled substance in ED? No Results/Orders Laboratory Tests 05/01/172011: Urine Color YELLOW, Urine Appearance Clear, Urine pH 5.5, Ur Specific [place] 1.020, Urine Protein NEGATIVE, Urine Ketones NEGATIVE, Urine Blood TRACE H, Urine Nitrate NEGATIVE, Urine Bilirubin NEGATIVE, Urine Urobilinogen 0.2, Ur Leukocyte Esterase TRACE H, Urine Glucose NEGATIVE Orders Procedure Date/time Status [facility] [[email or web address] URINE DIPSTICK 05/01 2012 Complete Departure Departure Time of Disposition 2026 Disposition DC Home or Self Care(routine) Clinical Impression Primary Impression: UTI (urinary tract infection) Qualifiers: Urinary tract infection type: site unspecified Hematuria presence: with hematuria Qualified Code: N39.0 - Urinary tract infection, site not specified Condition STABLE Referrals Jacy BEAN,Aneesh Villalba (Family): 3 Days-Call Office Or sooner if no improvement Patient Instructions DI for Urinary Tract Infection (UTI), Urinary Tract Infection Additional Instructions *Increase fluids. Water not Soda or Tea *Start antibiotic immediately and be sure to take as ordered for the FULL length of time although you should start to see improvement over the next 48 hours *Pyridium as needed Remember this medication will turn your urine Randolph. This is normal but it will stain what ever it gets on *You should not use Pyridium for more than 48 hours. If so , follow up with your primary physician to review urine culture and ensure that antibiotic is adequate for infection *Be SURE to follow up anytime for new or worsening symptoms. AND in 48 hours for urine culture results AND in 10-14 days to repeat UA to ensure infection is resolved and blood no longer present *Be sure to let your PCP know that we sent urine cultures from the [facility] [email or web address]] so they can follow up to ensure that you area the on the correct antibiotic If no improvement or worsening of symptoms such as fever body aches etc straight to ER or family doctor Discharge Counseling Counseled pt/family regarding diagnosis, test results, medications/RX, home care, follow up needs Prescriptions Current Visit Scripts NITROFURANTOIN MONOHYD/M-CRYST (Macrobid 100 MG Capsule) 100 MG PO BID #14 CAP Phenazopyridine HCl (Pyridium) 100 MG PO TID #6 TAB at 2037
== END 2017-05-01 20:38 | disposition home or self-care (01) ==
LOC: UTC 20:00
PROVIDERS: Nurse Practitioner
DX: N39.0 Urinary tract infection, site not specified (principal); I10 Essential (primary) hypertension; J45.909 Unspecified asthma, uncomplicated; K21.9 Gastro-esophageal reflux disease without esophagitis